=== PATIENT | female | born 1945 | race Caucasian/White ===

== ENCOUNTER → 2016-10-07 | Outpatient (CLI) | payer MEDICARE, OTHER | END | disposition home or self-care (01) | LOC: GMAJ 16:55 | PROVIDERS: ATTEND Family Medicine | DX: R30.0 Dysuria (principal) ==

== ENCOUNTER 2016-11-28 20:33 | Emergency (ER) | payer MEDICARE, OTHER ==
[2016-11-28 21:02] VITALS: TEMP 97.1
--- NOTE | 2016-11-28 21:09 | ED.PDOC ---
History of Present Illness - General Chief Complaint: Abdominal Pain Stated Complaint: left flank pain to back Time Seen by Provider: 11/28/16 20:41 Information Source: patient, RN notes reviewed, Vital Signs reviewed Exam Limitations: no limitations - History of Present Illness Initial Comments: Patient comes in with 2 weeks of progressively worsening lower abdominal pain that is radiating to her low back. The pain is dull and constant. + nausea but reports not changed from her base line. Feels bloated. Has been having problems with constipation. Was treated for a UTI 2-3 weeks ago with Keflex. Denies current urinary symptom. No fever or chills. Easily full. Blood sugar was low, 101, prior to coming to ER. Abdominal Pain Onset Location: LLQ, suprapubic Pain Radiation: back Quality: moderate, dull, steady Timing/Duration: getting worse - over past 2 weeks Improving Factors: nothing Worsening Factors: movement Associated Symptoms: back pain, nausea/vomiting Review of Systems - Review of Systems Constitutional: States: no symptoms reported. Denies: chills, fever, malaise Respiratory: States: no symptoms reported Cardiology: States: no symptoms reported Gastrointestinal/Abdominal: States: see HPI, abdominal pain, constipation, nausea. Denies: diarrhea, vomiting Genitourinary: States: no symptoms reported Musculoskeletal: States: back pain Skin: States: no symptoms reported Neurological: States: no symptoms reported Endocrine: States: increased thirst. Denies: increased urine Hematologic/Lymphatic: States: no symptoms reported Past Medical History (General) - Patient Medical History Hx Seizures: No Hx Stroke: No Hx Dementia: No Hx Asthma: No Hx of COPD: No Hx Cardiac Disorders: Yes - CAD Hx Congestive Heart Failure: No Hx Pacemaker: No Hx Hypertension: Yes Hx Thyroid Disease: No Hx Diabetes: Yes Hx Gastroesophageal Reflux: Yes Hx Renal Disease: No Hx Cancer: No Hx of HIV: No Hx Hepatitis C: No Hx MRSA: No Surgical History: cholecystectomy, other - Vaccination History Hx Tetanus, Diphtheria Vaccination: Yes Hx Influenza Vaccination: Yes Hx Pneumococcal Vaccination: Yes Immunizations Up to Date: Yes - Social History Hx Tobacco Use: No Hx Chewing Tobacco Use: No Hx Alcohol Use: No Hx Substance Use: No Hx Depression: No Hx Physical Abuse: No Hx Emotional Abuse: No Hx Suspected Abuse: No - Female History Patient is a Female of Child Bearing Age (10 -59 yrs old): No Patient : No Family Medical History - Family History Mother Family History: Unknown Physical Exam - Physical Exam General Appearance: Alert, No apparent distress, Obese, Well Developed, Well Groomed, Well Nourished, Other - Uncomfortable Neck: non-tender, full range of motion, supple, normal inspection Respiratory: lungs clear, normal breath sounds, no respiratory distress, no accessory muscle use Cardiovascular/Chest: normal peripheral pulses, regular rate, rhythm, no gallop , no JVD, no murmur Gastrointestinal/Abdominal: normal bowel sounds, soft, no organomegaly, no pulsatile mass, tenderness - LLQ without guarding or rebbound Extremity: normal range of motion, normal inspection Neurologic: alert, normal mood/affect, oriented x 3 Skin Exam: normal color, warm/dry Comments: Vital Signs - 24 hr 11/28/16 20:51 Temperature 97.1 F L Pulse Rate [ 75 left] Respiratory 18 Rate Blood Pressure 124/69 [left] O2 Sat by Pulse 92 L Oximetry Progress - Progress Progress: 11/28/16 23:58 Work-up suggests UTI. Will start Cipro and get urine culture. Patient is in agreement with plan. - Results/Orders Results/Orders: Laboratory Tests 11/28/16 11/28/16 11/28/16 21:11 21:20 21:20 WBC 7.5 RBC 3.61 L Hgb 12.4 Hct 37.9 MCV 105.1 H MCH 34.3 H MCHC 32.6 L RDW 15.4 H Plt Count 180 MPV 9.8 Absolute Neuts (auto) 4.20 Absolute Lymphs (auto) 1.50 Absolute Monos (auto) 1.20 H Absolute Eos (auto) 0.60 H Absolute Basos (auto) 0.00 Neutrophils % 56.3 Lymphocytes % 19.8 L Monocytes % 15.3 H Eosinophils % 7.9 H Basophils % 0.7 Sodium 141 Potassium 4.4 Chloride 100 L Carbon Dioxide 31 Anion Gap 14.4 BUN 32 H Creatinine 2.02 H BUN/Creatinine Ratio 15.8 POC Glucose Random Glucose 116 H Serum Osmolality 289.1 Calcium 9.9 Total Bilirubin 0.6 AST 30 ALT 19 Alkaline Phosphatase 82 Serum Total Protein 7.3 Albumin 4.1 Globulin 3.2 Albumin/Globulin Ratio 1.3 Urine Color Yellow Urine Appearance Clear Urine pH 6.0 Ur Specific [place] 1.010 Urine Protein Negative Urine Glucose (UA) Negative Urine Ketones Negative Urine Blood Trace-intact H Urine Nitrite Negative Urine Bilirubin Negative Urine Urobilinogen 0.2 Ur Leukocyte Esterase Moderate H Urine RBC 1-3 Urine WBC 3-5 H Ur Epithelial Cells 3-5 Urine Bacteria Rare 11/28/16 21:20 WBC RBC Hgb Hct MCV MCH MCHC RDW Plt Count MPV Absolute Neuts (auto) Absolute Lymphs (auto) Absolute Monos (auto) Absolute Eos (auto) Absolute Basos (auto) Neutrophils % Lymphocytes % Monocytes % Eosinophils % Basophils % Sodium Potassium Chloride Carbon Dioxide Anion Gap BUN Creatinine BUN/Creatinine Ratio POC Glucose 116 H Random Glucose Serum Osmolality Calcium Total Bilirubin AST ALT Alkaline Phosphatase Serum Total Protein Albumin Globulin Albumin/Globulin Ratio Urine Color Urine Appearance Urine pH Ur Specific [place] Urine Protein Urine Glucose (UA) Urine Ketones Urine Blood Urine Nitrite Urine Bilirubin Urine Urobilinogen Ur Leukocyte Esterase Urine RBC Urine WBC Ur Epithelial Cells Urine Bacteria - EKG/XRAY/CT CT Ordered: Yes - Diverticulosis, o/w unremarkable per Radiology Departure - Departure Clinical Impression: Acute UTI Time of Disposition: 23:59 Disposition: Discharge to Home or Self Care Condition: Good Departure Forms: ED Discharge - Pt. Copy, Patient Portal Self Enrollment Instructions: DI for Urinary Tract Infection (UTI) Diet: resume usual diet Activity: increase activity as tolerated Referrals: Collin Catalan MD [Primary Care Provider] - 1-2 Weeks Prescriptions: Ciprofloxacin [Cipro] 500 mg PO BID #10 tab Home Medications: Ambulatory Orders Amlodipine Besylate 5 mg PO AM 10/18/12 Aspirin [Aspir-81] 81 mg PO AM 10/18/12 HYDROcodone 7.5MG/APAP 325MG [[place] 7.5/325] 1 ea PO Q6H PRN 10/18/12 Pantoprazole Sodium 40 mg PO AM 10/18/12 cloNAZepam [Klonopin] 1 mg PO BID 10/18/12 Valacyclovir HCl [Valtrex] 500 mg PO BID PRN 12/10/14 Allopurinol [Zyloprim] 300 mg PO DAILY 01/17/16 Ascorbic Acid [Vitamin C] 500 mg PO DAILY 01/17/16 Atorvastatin Calcium [Lipitor] 40 mg PO DAILY 01/17/16 BuPROPion SR [Wellbutrin SR] 150 mg PO DAILY 01/17/16 Chlorpheniramine Maleate [Chlor-Trimeton] 4 mg PO Q6HR PRN 01/17/16 Cholecalciferol [D3 2000] 2,000 unit PO DAILY 01/17/16 Furosemide Tab [Lasix Tab] 40 mg PO DAILY 01/17/16 Guaifenesin-Codeine [Guaifenesin AC 100-10 mg/5Ml] 10 ml PO Q4H PRN 01/17/16 HYDROcodone 7.5MG/APAP 325MG [[place] 7.5/325] 1 tab PO BEDTIME 01/17/16 Ibuprofen [Advil] 200 mg PO PRN 01/17/16 Insulin Regular (Human) [Humulin R] 40 unit SUBCU TIDFD 01/17/16 Isosorbide Mononitrate [Isosorbide Mononitrate ER] 30 mg PO DAILY 01/17/16 Meclizine HCl 25 mg PO TID PRN 01/17/16 Metoprolol Succinate [Metoprolol Succinate ER] 50 mg PO DAILY 01/17/16 [place]-3 Fatty Acids [Fish Oil] 1,200 mg PO DAILY 01/17/16 Ondansetron [Ondansetron Odt] 4 mg PO Q6H PRN 01/17/16 Phenazopyridine HCl [Azo Urinary Pain Relief M] 2 ea PO TID PRN 01/17/16 diphenhydrAMINE HCL [Benadryl] 25 mg PO BEDTIME 01/17/16 Insulin,Isop(Human(NPH) [HumuLIN N] 30 unit SUBCU BIDAC #1 pen 01/18/16 Ciprofloxacin [Cipro] 500 mg PO BID #10 tab 11/29/16
--- NOTE | 2016-11-28 22:01 | RAD ---
EXAM DESCRIPTION: Abdomen Series CLINICAL HISTORY: 71 years Female ,Lower abd pain and constipation COMPARISON: 01/17/2016 TECHNIQUE: Frontal view chest x-ray and two views of the abdomen. FINDINGS: The cardiomediastinal silhouette appears stable. Heart appears enlarged.. No consolidating infiltrates or pleural effusions. No free air is identified beneath the hemidiaphragms. No dilated loops of bowel to suggest obstruction. Postsurgical changes in the gallbladder fossa. IMPRESSION: No acute plain film abnormality is identified. Stable mild cardiomegaly Electronically signed by: Gina Worthington 11/28/2016 10:01 PM CDT
[2016-11-28] MEDS ORDERED: SODIUM CHLORIDE 0.9% 1000ML 1,000 ML IVS ONE (22:07)
[2016-11-28 23:21] VITALS: O2SAT 97
--- NOTE | 2016-11-28 23:51 | CT ---
EXAM DESCRIPTION: Abdoment/Pelvis w/o Contrast CLINICAL HISTORY: 71 years Female LLQ pain, hematuria COMPARISON: 04/07/2012 TECHNIQUE: Contiguous axial images obtained through the abdomen and pelvis without IV contrast. Reformatted images obtained. This exam was performed according to our department optimization program which includes automated exposure control, adjustment of the mA and/or kv according to patient size and/or use of iterative reconstruction technique. FINDINGS: The lung bases are clear. The liver appears unremarkable. The spleen and pancreas appear unremarkable. No adrenal masses. The kidneys appear unremarkable. No hydronephrosis or definite ureteral calculi. The gallbladder is absent. No evidence of aortic aneurysm. There is diffuse vascular calcification. Fat-containing ventral hernia. No bowel obstruction. Diverticulosis without evidence of diverticulitis. Unremarkable appendix. No free pelvic fluid. IMPRESSION: Diverticulosis without evidence of diverticulitis No evidence of hydronephrosis or obstructive uropathy Vascular calcification Electronically signed by: Gina Worthington 11/28/2016 11:51 PM CDT
[2016-11-28] MEDS ORDERED: CIPROFLOXACIN 500 MG TAB PO ONE (23:57)
[2016-11-29 00:11] VITALS: BP 122/63
== END 2016-11-29 00:12 | disposition home or self-care (01) ==
LOC: ER 20:33
DX: N39.0 Urinary tract infection, site not specified (principal); I25.10 Atherosclerotic heart disease of native coronary artery without angina pectoris; I10 Essential (primary) hypertension; E11.9 Type 2 diabetes mellitus without complications; K21.9 Gastro-esophageal reflux disease without esophagitis
CPT/HCPCS: 36415; 74020; 74176; 80053; 81001; 82948; 85025; 87086; J7030

== ENCOUNTER → 2017-01-12 | Outpatient (CLI) | payer MEDICARE, OTHER | LOC: GMA 17:36 | PROVIDERS: ATTEND Nurse Practitioner Acute Care | DX: N30.00 Acute cystitis without hematuria (principal) ==

== ENCOUNTER → 2017-03-13 | Outpatient (CLI) | payer MEDICARE, OTHER | END | disposition home or self-care (01) | LOC: GMA 12:36 | PROVIDERS: ATTEND Nurse Practitioner Family | DX: N30.00 Acute cystitis without hematuria (principal) ==

== ENCOUNTER 2017-04-25 23:00 | Emergency (ER) | payer MEDICARE, OTHER ==
--- NOTE | 2017-04-25 23:39 | RAD ---
Procedure: XR FOOT 3 OR MORE VIEWS Exam Date: 04/25/2017 Ordering Provider: Gerardo Babcock Clinical Indication: right foot pain Comparison: None FINDINGS: No fracture or dislocation. Articular surfaces of the foot are preserved. No lytic or sclerotic lesions. Os peroneum. Lateral soft tissue swelling at the level of the fifth MTP joint. No radiopaque foreign body. No subcutaneous gas evident. Diffuse demineralization of the bones. IMPRESSION: 1. No acute fracture or dislocation of the right foot. Electronically signed by: Mitch Hawkins MD 04/25/2017 11:38 PM CDT
[2017-04-26 00:15] VITALS: TEMP 98.7
--- NOTE | 2017-04-26 00:32 | ED.PDOC ---
History of Present Illness - General Chief Complaint: Lower Extremity Injury Stated Complaint: rt foot soreness Time Seen by Provider: 04/26/17 00:07 Source: patient Exam Limitations: no limitations - History of Present Illness Initial Comments: The patient is a 72-year-old female presented secondary to persistent pain to the plantar and lateral aspect of the fifth metatarsal phalangeal joint of the right foot. The patient has apparently had a long-standing callus there and had a doctor work on it several weeks ago. He apparently made her bleed and since that time she has been having some pain at the site. She has a very large callus with underlying blood blister with what is no doubt a significant ulcer underneath that. There is no extending erythema. She reports that the blister had drained several days ago and sealed back up area she is not having any fevers. The callus is very thick and does need debridement. Timing/Duration: unsure Severity: mild Improving Factors: nothing Worsening Factors: nothing Associated Symptoms: denies symptoms Allergies/Adverse Reactions: Allergies Penicillins Allergy (Verified 01/17/16 06:48) Home Medications: Ambulatory Orders Amlodipine Besylate 5 mg PO AM 10/18/12 Aspirin [Aspir-81] 81 mg PO AM 10/18/12 HYDROcodone 7.5MG/APAP 325MG [[place] 7.5/325] 1 ea PO Q6H PRN 10/18/12 Pantoprazole Sodium 40 mg PO AM 10/18/12 cloNAZepam [Klonopin] 1 mg PO BID 10/18/12 Valacyclovir HCl [Valtrex] 500 mg PO BID PRN 12/10/14 Allopurinol [Zyloprim] 300 mg PO DAILY 01/17/16 Ascorbic Acid [Vitamin C] 500 mg PO DAILY 01/17/16 Atorvastatin Calcium [Lipitor] 40 mg PO DAILY 01/17/16 BuPROPion SR [Wellbutrin SR] 150 mg PO DAILY 01/17/16 Chlorpheniramine Maleate [Chlor-Trimeton] 4 mg PO Q6HR PRN 01/17/16 Cholecalciferol [D3 2000] 2,000 unit PO DAILY 01/17/16 Furosemide Tab [Lasix Tab] 40 mg PO DAILY 01/17/16 Guaifenesin-Codeine [Guaifenesin AC 100-10 mg/5Ml] 10 ml PO Q4H PRN 01/17/16 HYDROcodone 7.5MG/APAP 325MG [[place] 7.5/325] 1 tab PO BEDTIME 01/17/16 Ibuprofen [Advil] 200 mg PO PRN 01/17/16 Insulin Regular (Human) [Humulin R] 40 unit SUBCU TIDFD 01/17/16 Isosorbide Mononitrate [Isosorbide Mononitrate ER] 30 mg PO DAILY 01/17/16 Meclizine HCl 25 mg PO TID PRN 01/17/16 Metoprolol Succinate [Metoprolol Succinate ER] 50 mg PO DAILY 01/17/16 [place]-3 Fatty Acids [Fish Oil] 1,200 mg PO DAILY 01/17/16 Ondansetron [Ondansetron Odt] 4 mg PO Q6H PRN 01/17/16 Phenazopyridine HCl [Azo Urinary Pain Relief M] 2 ea PO TID PRN 01/17/16 diphenhydrAMINE HCL [Benadryl] 25 mg PO BEDTIME 01/17/16 Insulin,Isop(Human(NPH) [HumuLIN N] 30 unit SUBCU BIDAC #1 pen 01/18/16 Ciprofloxacin [Cipro] 500 mg PO BID #10 tab 11/29/16 Review of Systems - Review of Systems Review of Systems: 04/26/17 00:31 or new symptoms only: Constitutional: States: no symptoms reported EENTM: States: no symptoms reported Respiratory: States: no symptoms reported Cardiology: States: no symptoms reported Gastrointestinal/Abdominal: States: no symptoms reported Genitourinary: States: no symptoms reported Musculoskeletal: States: see HPI Skin: States: see HPI Neurological: States: no symptoms reported Endocrine: States: no symptoms reported All other Systems: No Change from Baseline Past Medical History (General) - Patient Medical History Hx Seizures: No Hx Stroke: No Hx Dementia: No Hx Asthma: No Hx of COPD: No Hx Cardiac Disorders: Yes - CAD Hx Congestive Heart Failure: No Hx Pacemaker: No Hx Hypertension: Yes Hx Thyroid Disease: No Hx Diabetes: Yes Hx Gastroesophageal Reflux: Yes Hx Renal Disease: No Hx Cancer: No Hx of HIV: No Hx Hepatitis C: No Hx MRSA: No Surgical History: cholecystectomy, other - Vaccination History Hx Tetanus, Diphtheria Vaccination: Yes Hx Influenza Vaccination: Yes Hx Pneumococcal Vaccination: Yes - Social History Hx Tobacco Use: No Hx Chewing Tobacco Use: No Hx Alcohol Use: No Hx Substance Use: No Hx Depression: No Hx Physical Abuse: No Hx Emotional Abuse: No Hx Suspected Abuse: No - Female History Patient : No Family Medical History - Family History Mother Family History: Unknown Physical Exam - Physical Exam General Appearance: Alert, Comfortable, No apparent distress Eye Exam: bilateral normal Ears, Nose, Throat: hearing grossly normal Neck: non-tender, supple Respiratory: no respiratory distress, no accessory muscle use Cardiovascular/Chest: no edema, other - regular rate Peripheral Pulses: radial,right: 2+, radial,left: 2+, dorsalis pedis,right: 2+, dorsalis pedis,left: 2+ Rectal Exam: deferred Extremity: normal range of motion, no pedal edema, normal capillary refill Neurologic: patternmaker all around II-XII nml as tested, alert, normal mood/affect, oriented x 3 Skin Exam: normal color - with the exception of a 1.25 x 1" callus with underlying blood blister to the right fifth metatarsal phalangeal joint Comments: Vital Signs - 24 hr 04/26/17 00:04 Temperature 98.7 F Pulse Rate [ 80 left] Respiratory 18 Rate Blood Pressure 139/45 [left] O2 Sat by Pulse 95 Oximetry Progress - Progress Progress: 04/26/17 00:33 the patient is a 72-year-old female presenting to the emergency room secondary to persistent discomfort due to a long-standing callus with underlying ulcer that is currently being covered by a blood blister that is at the base of the right fifth metatarsophalangeal joint. x-ray is reassuring. There is the possibility of infection within the blood blister. The patient has refused to allow me to trim down the callus to prevent growth of the underlying ulcer. Nor have I been allowed to obtain culture from the fluid within the blood blister. There is no significant evidence of any extending cellulitis. The patient has agreed to follow up with her primary care doctor on Thursday to try and get a referral to a specialist as soon as possible. Until then she is to try and keep weight off of the area in question. ER warnings were given for any significant worsening. - Results/Orders Results/Orders: x-ray of the right foot shows no evidence of fracture or dislocation. No evidence of significant bony erosion at the site of questionto indicate any osteomyelitis at this time. Departure - Departure Clinical Impression: Foot ulcer Qualifiers: Laterality: right Non-pressure ulcer stage: limited to breakdown of skin Qualified Code(s): L97.511 - Non-pressure chronic ulcer of other part of right foot limited to breakdown of skin Disposition: Discharge to Home or Self Care Condition: Fair Departure Forms: ED Discharge - Pt. Copy, Patient Portal Self Enrollment Instructions: DI for Diabetic Foot Ulcer Diet: diabetic diet, regular diet Activity: no pushing/pulling with affected limb Referrals: Collin Catalan MD [Primary Care Provider] - 1-2 Days Home Medications: Ambulatory Orders Amlodipine Besylate 5 mg PO AM 10/18/12 Aspirin [Aspir-81] 81 mg PO AM 10/18/12 HYDROcodone 7.5MG/APAP 325MG [[place] 7.5/325] 1 ea PO Q6H PRN 10/18/12 Pantoprazole Sodium 40 mg PO AM 10/18/12 cloNAZepam [Klonopin] 1 mg PO BID 10/18/12 Valacyclovir HCl [Valtrex] 500 mg PO BID PRN 12/10/14 Allopurinol [Zyloprim] 300 mg PO DAILY 01/17/16 Ascorbic Acid [Vitamin C] 500 mg PO DAILY 01/17/16 Atorvastatin Calcium [Lipitor] 40 mg PO DAILY 01/17/16 BuPROPion SR [Wellbutrin SR] 150 mg PO DAILY 01/17/16 Chlorpheniramine Maleate [Chlor-Trimeton] 4 mg PO Q6HR PRN 01/17/16 Cholecalciferol [D3 2000] 2,000 unit PO DAILY 01/17/16 Furosemide Tab [Lasix Tab] 40 mg PO DAILY 01/17/16 Guaifenesin-Codeine [Guaifenesin AC 100-10 mg/5Ml] 10 ml PO Q4H PRN 01/17/16 HYDROcodone 7.5MG/APAP 325MG [[place] 7.5/325] 1 tab PO BEDTIME 01/17/16 Ibuprofen [Advil] 200 mg PO PRN 01/17/16 Insulin Regular (Human) [Humulin R] 40 unit SUBCU TIDFD 01/17/16 Isosorbide Mononitrate [Isosorbide Mononitrate ER] 30 mg PO DAILY 01/17/16 Meclizine HCl 25 mg PO TID PRN 01/17/16 Metoprolol Succinate [Metoprolol Succinate ER] 50 mg PO DAILY 01/17/16 [place]-3 Fatty Acids [Fish Oil] 1,200 mg PO DAILY 01/17/16 Ondansetron [Ondansetron Odt] 4 mg PO Q6H PRN 01/17/16 Phenazopyridine HCl [Azo Urinary Pain Relief M] 2 ea PO TID PRN 01/17/16 diphenhydrAMINE HCL [Benadryl] 25 mg PO BEDTIME 01/17/16 Insulin,Isop(Human(NPH) [HumuLIN N] 30 unit SUBCU BIDAC #1 pen 01/18/16 Ciprofloxacin [Cipro] 500 mg PO BID #10 tab 11/29/16 Additional Instructions: the patient is a 72-year-old female presenting to the emergency room secondary to persistent discomfort due to a long-standing callus with underlying ulcer that is currently being covered by a blood blister that is at the base of the right fifth metatarsophalangeal joint. x-ray is reassuring. There is the possibility of infection within the blood blister. The patient has refused to allow me to trim down the callus to prevent growth of the underlying ulcer. Nor have I been allowed to obtain culture from the fluid within the blood blister. There is no significant evidence of any extending cellulitis. The patient has agreed to follow up with her primary care doctor on Thursday to try and get a referral to a specialist as soon as possible. Until then she is to try and keep weight off of the area in question. ER warnings were given for any significant worsening.
[2017-04-26 03:03] VITALS: BP 141/68; O2SAT 97
== END 2017-04-26 00:45 | disposition home or self-care (01) ==
LOC: ER 23:00
DX: L97.511 Non-pressure chronic ulcer of other part of right foot limited to breakdown of skin (principal); I10 Essential (primary) hypertension; I25.10 Atherosclerotic heart disease of native coronary artery without angina pectoris; Z79.899 Other long term (current) drug therapy; Z79.4 Long term (current) use of insulin; Z79.82 Long term (current) use of aspirin; Z88.0 Allergy status to penicillin

== ENCOUNTER → 2017-07-13 | Outpatient (CLI) | payer MEDICARE, OTHER | END | disposition home or self-care (01) | LOC: GMAJ 14:33 | PROVIDERS: ATTEND Family Medicine | DX: E78.00 Pure hypercholesterolemia, unspecified (principal); I10 Essential (primary) hypertension; E11.8 Type 2 diabetes mellitus with unspecified complications ==

== ENCOUNTER 2017-11-29 15:59 | Emergency (ER) | payer MEDICARE, OTHER ==
[2017-11-29 16:17] VITALS: TEMP 97.1
[2017-11-29] MEDS ORDERED: ALUM & MAG HYDROX-SIMETHICONE 30 ML, LIDOCAINE VISCOUS 2% 15 ML PO ONE ×2 (16:32)
[2017-11-29] MEDS ORDERED: ONDANSETRON INJ 4 MG/2 ML VIAL IV ONE (16:32)
[2017-11-29] MEDS ORDERED: PANTOPRAZOLE SODIUM IV 40 MG VIAL IV ONE (16:32)
[2017-11-29] MEDS ORDERED: SODIUM CHLORIDE 0.9% 500ML 500 ML IVS ONE (16:33)
--- NOTE | 2017-11-29 16:36 | ED.PDOC ---
History of Present Illness - General Chief Complaint: GI Problem Stated Complaint: indigestion,heartburn Time Seen by Provider: 11/29/17 16:25 Information Source: patient - History of Present Illness Abdominal Pain Onset Location: epigastric Pain Radiation: chest Quality: burning Timing/Duration: 4-6 hours - has been on po clindamycin x 2 days after skin carcinoma resection on L chest, 2 days ago Improving Factors: nothing Worsening Factors: eating Associated Symptoms: chest pain, heartburn Review of Systems - Review of Systems Constitutional: Denies: diaphoresis, fever, weakness EENTM: States: no symptoms reported Respiratory: Denies: cough, short of breath Cardiology: States: chest pain. Denies: edema Gastrointestinal/Abdominal: States: abdominal pain, nausea. Denies: diarrhea, vomiting Genitourinary: States: no symptoms reported Musculoskeletal: States: no symptoms reported Skin: States: no symptoms reported Neurological: Denies: numbness, paresthesia, weakness Endocrine: States: no symptoms reported Hematologic/Lymphatic: States: no symptoms reported Past Medical History (General) - Patient Medical History Hx Seizures: No Hx Stroke: No Hx Dementia: No Hx Asthma: No Hx of COPD: No Hx Cardiac Disorders: Yes - CAD Hx Congestive Heart Failure: No Hx Pacemaker: No Hx Hypertension: Yes Hx Thyroid Disease: No Hx Diabetes: Yes Hx Gastroesophageal Reflux: Yes Hx Renal Disease: No Hx Cancer: Yes - Skin Hx of HIV: No Hx Hepatitis C: No Hx MRSA: No Surgical History: cholecystectomy - Vaccination History Hx Tetanus, Diphtheria Vaccination: Yes Hx Influenza Vaccination: Yes Hx Pneumococcal Vaccination: Yes - Social History Hx Tobacco Use: Yes Hx Chewing Tobacco Use: No Hx Alcohol Use: No Hx Substance Use: No Hx Depression: No Hx Physical Abuse: No Hx Emotional Abuse: No Hx Suspected Abuse: No - Female History Patient : No Family Medical History - Family History Mother Family History: Unknown Physical Exam - Physical Exam General Appearance: Alert, Anxious, Obvious distress Eyes, Ears, Nose, Throat Exam: PERRL/EOMI, pharynx normal, other - dry mucosa Neck: non-tender, full range of motion Respiratory: lungs clear, normal breath sounds, other - bandaged, sutured wound L chest Cardiovascular/Chest: regular rate, rhythm, no edema Peripheral Pulses: No deficit Gastrointestinal/Abdominal: normal bowel sounds, soft, tenderness - in epigastrium Extremity: normal range of motion, non-tender, normal inspection, no pedal edema Neurologic: alert, normal mood/affect, oriented x 3 Skin Exam: normal color, warm/dry Lymphatic: no adenopathy Progress - EKG/XRAY/CT EKG: Sinus, nonspecific ST T wave Chg Comments: rate 81, IA 124, QRS 62 Departure - Departure Clinical Impression: Gastritis Qualifiers: Gastritis type: unspecified gastritis Chronicity: acute Gastritis bleeding: without bleeding Qualified Code(s): K29.00 - Acute gastritis without bleeding GERD (gastroesophageal reflux disease) Qualifiers: Esophagitis presence: with esophagitis Qualified Code(s): K21.0 - Gastro- esophageal reflux disease with esophagitis Disposition: Discharge to Home or Self Care Departure Forms: ED Discharge - Pt. Copy, Patient Portal Self Enrollment Referrals: Collin Catalan MD [Primary Care Provider] - 1-2 Weeks Prescriptions: Ondansetron HCl [Zofran] 4 - 8 mg PO Q6HR PRN #20 tab PRN Reason: Nausea Home Medications: Ambulatory Orders Amlodipine Besylate 5 mg PO AM 10/18/12 Aspirin [Aspir-81] 81 mg PO AM 10/18/12 Pantoprazole Sodium 40 mg PO AM 10/18/12 cloNAZepam [Klonopin] 0.5 mg PO BID 10/18/12 Valacyclovir HCl [Valtrex] 500 mg PO BID PRN 12/10/14 Allopurinol [Zyloprim] 300 mg PO DAILY 01/17/16 Ascorbic Acid [Vitamin C] 1,000 mg PO DAILY 01/17/16 Atorvastatin Calcium [Lipitor] 40 mg PO DAILY 01/17/16 BuPROPion SR [Wellbutrin SR] 150 mg PO DAILY 01/17/16 Cholecalciferol [D3 2000] 2,000 unit PO DAILY 01/17/16 Furosemide Tab [Lasix Tab] 40 mg PO DAILY 01/17/16 HYDROcodone 7.5MG/APAP 325MG [[place] 7.5/325] 0.5 tab PO BID 01/17/16 Insulin Regular (Human) [Humulin R] 40 unit SUBCU TIDFD 01/17/16 Isosorbide Mononitrate [Isosorbide Mononitrate ER] 30 mg PO DAILY 01/17/16 Meclizine HCl 25 mg PO TID PRN 07/21/16 Metoprolol Succinate [Metoprolol Succinate ER] 50 mg PO DAILY 01/17/16 [place]-3 Fatty Acids [Fish Oil] 1,200 mg PO DAILY 01/17/16 Ondansetron [Ondansetron Odt] 4 mg PO Q6H PRN 01/17/16 Insulin,Isop(Human(NPH) [HumuLIN N] 30 unit SUBCU BIDAC #1 pen 01/18/16 Magnesium 500 mg PO DAILY 11/29/17 Ondansetron HCl [Zofran] 4 - 8 mg PO Q6HR PRN #20 tab 11/29/17 Vitamin E [Natural Vitamin E] 2,000 unit PO DAILY 11/29/17 Zinc 50 mg PO DAILY 11/29/17
[2017-11-29] MEDS ORDERED: ALUM & MAG HYDROX-SIMETHICONE 30 ML UD ONE (16:44)
[2017-11-29] MEDS ORDERED: LIDOCAINE HCL 2% (MOUTH-THROAT) 15 ML UD ONE (16:44)
[2017-11-29] MEDS ORDERED: PROMETHAZINE HCL INJ 12.5 MG in SODIUM CHLORIDE 0.9% 50ML 50 ML IVPB ONE (17:15)
[2017-11-29] MEDS ORDERED: PROMETHAZINE HCL INJ 25 MG/ML VIAL ONE (17:20)
[2017-11-29] MEDS ORDERED: SODIUM CHLORIDE 0.9% 50ML 50 ML ONE (17:20)
[2017-11-29 18:24] VITALS: BP 124/59; O2SAT 97
== END 2017-11-29 18:19 | disposition home or self-care (01) ==
LOC: ER 15:59
DX: K29.00 Acute gastritis without bleeding (principal); K21.0 Gastro-esophageal reflux disease with esophagitis; I25.10 Atherosclerotic heart disease of native coronary artery without angina pectoris; I10 Essential (primary) hypertension; E11.9 Type 2 diabetes mellitus without complications; Z85.828 Personal history of other malignant neoplasm of skin; Z87.891 Personal history of nicotine dependence
CPT/HCPCS: 36415; 80053; 84484; 85025; 93005; A4216; J2405; J2550; J7040

== ENCOUNTER → 2017-12-03 | Outpatient (CLI) | payer MEDICARE, OTHER | LOC: GMAJ 16:28 | PROVIDERS: ATTEND Family Medicine | DX: N30.00 Acute cystitis without hematuria (principal); R30.0 Dysuria ==

== ENCOUNTER 2019-01-16 03:23 | Emergency (ER) | payer MEDICARE, OTHER ==
[2019-01-16 03:44] VITALS: TEMP 97.1
[2019-01-16] MEDS ORDERED: KETOROLAC TROMETHAMINE INJ 30 MG/ML VIAL IM ONE (03:47)
--- NOTE | 2019-01-16 03:51 | ED.PDOC ---
History of Present Illness - General Chief Complaint: General Stated Complaint: neuropathy pain in hands Time Seen by Provider: 01/16/19 03:25 Source: patient Exam Limitations: no limitations - History of Present Illness Initial Comments: The patient's a 73-year-old female presenting to the emergency room secondary to neuropathic pain in her hands and her feet. This is a long- standing problem. She does have tramadol to take an gabapentin to take however she did not take any of that tonight. She reports that Tylenol does better than the tramadol. She did take some Tylenol. She has discontinued the gabapentin because she felt like it was causing some swelling in her legs. She reports that she did not tolerate Lyrica well in the past. She does not know if she's tried Cymbalta. Timing/Duration: 4-6 hours Severity: moderate Improving Factors: nothing Worsening Factors: nothing Associated Symptoms: denies symptoms Allergies/Adverse Reactions: Allergies Penicillins Allergy (Verified 01/16/19 03:44) Home Medications: Ambulatory Orders Amlodipine Besylate 5 mg PO AM 10/18/12 Aspirin [Aspirin 81] 81 mg PO AM 10/18/12 Pantoprazole Sodium 40 mg PO AM 10/18/12 Allopurinol [Zyloprim] 300 mg PO DAILY 01/17/16 Atorvastatin Calcium [Lipitor] 40 mg PO DAILY 01/17/16 BuPROPion SR [Wellbutrin SR] 150 mg PO DAILY 01/17/16 Furosemide Tab [Lasix Tab] 40 mg PO DAILY 01/17/16 Insulin Regular (Human) [Humulin R] 40 unit SUBCU TIDFD 01/17/16 Isosorbide Mononitrate [Isosorbide Mononitrate ER] 30 mg PO DAILY 01/17/16 Metoprolol Succinate [Metoprolol Succinate ER] 50 mg PO DAILY 01/17/16 Insulin,Isop(Human(NPH) [HumuLIN N] 30 unit SUBCU BIDAC #1 pen 01/18/16 Gabapentin [Neurontin] 100 mg PO BID #30 cap 11/24/18 Tramadol HCl 50 mg PO Q6HRS PRN #30 tab 11/24/18 Ciprofloxacin [Cipro] 500 mg PO BID #10 tab 01/16/19 Review of Systems - Review of Systems Constitutional: States: no symptoms reported EENTM: States: no symptoms reported Respiratory: States: no symptoms reported Cardiology: States: no symptoms reported Gastrointestinal/Abdominal: States: no symptoms reported Genitourinary: States: no symptoms reported Musculoskeletal: States: no symptoms reported Skin: States: no symptoms reported Neurological: States: see HPI Endocrine: States: no symptoms reported All other Systems: No Change from Baseline Past Medical History (General) - Patient Medical History Hx Seizures: No Hx Stroke: No Hx Dementia: No Hx Asthma: No Hx of COPD: No Hx Cardiac Disorders: Yes - CAD Hx Congestive Heart Failure: No Hx Pacemaker: No Hx Hypertension: Yes Hx Thyroid Disease: No Hx Diabetes: Yes Hx Gastroesophageal Reflux: Yes Hx Renal Disease: No Hx Cancer: Yes - Skin Hx of HIV: No Hx Hepatitis C: No Hx MRSA: No Surgical History: cholecystectomy - Vaccination History Hx Tetanus, Diphtheria Vaccination: Yes Hx Influenza Vaccination: Yes Hx Pneumococcal Vaccination: Yes - Social History Hx Tobacco Use: Yes Hx Chewing Tobacco Use: No Hx Alcohol Use: No Hx Substance Use: No Hx Depression: No Hx Physical Abuse: No Hx Emotional Abuse: No Hx Suspected Abuse: No - Female History Patient : No Family Medical History - Family History Mother Family History: Unknown Hx Family Hypertension: Yes - multiple family members Hx Family Diabetes: Yes - multiple family members Physical Exam - Physical Exam General Appearance: Alert, Anxious, No apparent distress Eye Exam: bilateral normal Ears, Nose, Throat: hearing grossly normal - chronically decreased bilaterally, normal pharynx Neck: non-tender, supple Respiratory: no respiratory distress, no accessory muscle use Cardiovascular/Chest: normal peripheral pulses, no edema, other - regular rate Peripheral Pulses: radial,right: 2+, radial,left: 2+ Gastrointestinal/Abdominal: non tender, soft Rectal Exam: deferred Back Exam: no CVA tenderness, no vertebral tenderness Extremity: normal range of motion, non-tender, normal inspection, no calf tenderness, normal capillary refill, pedal edema - +1 edema to the left foot. No edema to the right foot. Neurologic: rn lpn cna II-XII nml as tested, alert, oriented x 3, other - flat affect Skin Exam: normal color Comments: Vital Signs - 24 hr 01/16/19 03:30 Temperature 97.1 F L Pulse Rate [ 74 monitor] Respiratory 18 Rate Blood Pressure 119/53 [Left Arm] O2 Sat by Pulse 92 L Oximetry Progress - Progress Progress: 01/16/19 03:51 the patient's a 73-year-old female with peripheral neuropathy. She has been having some difficulty with swelling of her feet since taking the gabapentin 300 mg 3 times daily. As the discomfort is most noticeable at night we will have her start taking it only in the evening. She can continue to take a dose of tramadol if needed. Occasional doses of Aleve may also help. She is to follow back up with her primary care doctor early next week for reevaluation. She did receive a dose of Toradol here and is to take a dose of gabapentin tonight. She should also shrimp picker some compression stockings from [employer] to help reduce the development of swelling related to the medication. Continue other home medications as previously prescribed. the patient is going to be placed on ciprofloxacin for a urinary tract infection as well. The urine is being cultured. She will need a repeat urinalysis with her primary care doctor later this week. ER warnings were given. 01/16/19 04:26 - Results/Orders Results/Orders: Laboratory Tests 01/16/19 03:55 Urine Color Yellow Urine Appearance Sl cloudy Urine pH 6.0 Ur Specific [place] 1.010 Urine Protein Negative Urine Glucose (UA) Negative Urine Ketones Negative Urine Blood Trace-intact H Urine Nitrite Positive H Urine Bilirubin Negative Urine Urobilinogen 0.2 Ur Leukocyte Esterase Moderate H Urine RBC 3-5 H Urine WBC Tntc H Ur Epithelial Cells 5-10 Urine Bacteria 3+ H Departure - Departure Clinical Impression: Cystitis, Neuropathic pain Disposition: Discharge to Home or Self Care Condition: Fair Departure Forms: ED Discharge - Pt. Copy, Patient Portal Self Enrollment Instructions: Peripheral Neuropathy (DC), Urinary Tract Infection, Adult (DC) Diet: regular diet Activity: increase activity as tolerated Referrals: Collin Catalan MD [Primary Care Provider] - 1-2 Weeks Prescriptions: Ciprofloxacin [Cipro] 500 mg PO BID #10 tab Home Medications: Ambulatory Orders Amlodipine Besylate 5 mg PO AM 10/18/12 Aspirin [Aspirin 81] 81 mg PO AM 10/18/12 Pantoprazole Sodium 40 mg PO AM 10/18/12 Allopurinol [Zyloprim] 300 mg PO DAILY 01/17/16 Atorvastatin Calcium [Lipitor] 40 mg PO DAILY 01/17/16 BuPROPion SR [Wellbutrin SR] 150 mg PO DAILY 01/17/16 Furosemide Tab [Lasix Tab] 40 mg PO DAILY 01/17/16 Insulin Regular (Human) [Humulin R] 40 unit SUBCU TIDFD 01/17/16 Isosorbide Mononitrate [Isosorbide Mononitrate ER] 30 mg PO DAILY 01/17/16 Metoprolol Succinate [Metoprolol Succinate ER] 50 mg PO DAILY 01/17/16 Insulin,Isop(Human(NPH) [HumuLIN N] 30 unit SUBCU BIDAC #1 pen 01/18/16 Gabapentin [Neurontin] 100 mg PO BID #30 cap 11/24/18 Tramadol HCl 50 mg PO Q6HRS PRN #30 tab 11/24/18 Ciprofloxacin [Cipro] 500 mg PO BID #10 tab 01/16/19 Additional Instructions: the patient's a 73-year-old female with peripheral neuropathy. She has been having some difficulty with swelling of her feet since taking the gabapentin 300 mg 3 times daily. As the discomfort is most noticeable at night we will have her start taking it only in the evening. She can continue to take a dose of tramadol if needed. Occasional doses of Aleve may also help. She is to follow back up with her primary care doctor early next week for reevaluation. She did receive a dose of Toradol here and is to take a dose of gabapentin tonight. She should also shrimp picker some compression stockings from [facility] to help reduce the development of swelling related to the medication. Continue o ther home medications as previously prescribed. the patient is going to be placed on ciprofloxacin for a urinary tract infection as well. The urine is being cultured. She will need a repeat urinalysis with her primary care doctor later this week. ER warnings were given.
[2019-01-16] MEDS ORDERED: CIPROFLOXACIN 500 MG TAB PO ONE (04:24)
[2019-01-16 04:38] VITALS: BP 138/73; O2SAT 93
== END 2019-01-16 04:38 | disposition home or self-care (01) ==
LOC: ER 03:23
DX: N30.90 Cystitis, unspecified without hematuria (principal); G62.9 Polyneuropathy, unspecified; I25.10 Atherosclerotic heart disease of native coronary artery without angina pectoris; I10 Essential (primary) hypertension; E11.9 Type 2 diabetes mellitus without complications; K21.9 Gastro-esophageal reflux disease without esophagitis; Z90.49 Acquired absence of other specified parts of digestive tract; Z85.828 Personal history of other malignant neoplasm of skin; Z87.891 Personal history of nicotine dependence; Z79.4 Long term (current) use of insulin; Z79.899 Other long term (current) drug therapy; Z88.0 Allergy status to penicillin
CPT/HCPCS: 81001; 87086; J1885

== ENCOUNTER 2019-07-22 13:48 | Emergency (ER) | payer MEDICARE, OTHER ==
[2019-07-22] MEDS ORDERED: SODIUM CHLORIDE 0.9% 1000ML 1,500 ML IVS ONE (14:00)
[2019-07-22] MEDS ORDERED: ACETAMINOPHEN 500 MG TAB PO ONE (14:00)
[2019-07-22] MEDS ORDERED: SODIUM CHLORIDE 0.9% (FLUSH) 10 ML SYG IV PRN (14:00)
[2019-07-22] MEDS ORDERED: MEROPENEM 1 GM in SODIUM CHL 0.9% 50ML MIN-BAG+ 50 ML IVPB ONE (14:02)
--- NOTE | 2019-07-22 14:04 | ED.PDOC ---
History of Present Illness - General Chief Complaint: Respiratory Problem Time Seen by Provider: 07/22/19 13:59 Source: patient Exam Limitations: no limitations - History of Present Illness Initial Comments: 74 yo F who presents for hypoxia via EMS. Pt states she has been feeling ill for the past 5 days with congestion, productive cough, sore throat, fever, chills, progressive SOB. Today home health came to check on her and pt was noted to be hypoxic to 70%, EMS was called, duoneb given en route. No hx of COPD or CHF, though pt is on water pill for "swelling in my legs." Denies hx of CA. Hx of CKD. Denies DAILY, neck pain/stiffness, CP, abd pain, n/v/d. 85% on arrival to ED. 90% on 4L in ED. Allergies/Adverse Reactions: Allergies Penicillins Allergy (Verified 01/16/19 03:44) Home Medications: Ambulatory Orders Amlodipine Besylate 5 mg PO AM 10/18/12 Aspirin [Aspirin 81] 81 mg PO AM 10/18/12 Pantoprazole Sodium 40 mg PO AM 10/18/12 Allopurinol [Zyloprim] 300 mg PO DAILY 01/17/16 Atorvastatin Calcium [Lipitor] 40 mg PO DAILY 01/17/16 BuPROPion SR [Wellbutrin SR] 150 mg PO DAILY 01/17/16 Furosemide Tab [Lasix Tab] 40 mg PO DAILY 01/17/16 Insulin Regular (Human) [Humulin R] 40 unit SUBCU TIDFD 01/17/16 Isosorbide Mononitrate [Isosorbide Mononitrate ER] 30 mg PO DAILY 01/17/16 Metoprolol Succinate [Metoprolol Succinate ER] 50 mg PO DAILY 01/17/16 Insulin,Isop(Human(NPH) [HumuLIN N] 30 unit SUBCU BIDAC #1 pen 01/18/16 Ascorbic Acid [Vitamin C] 1,000 mg PO DAILY 07/22/19 Calcium Carbonate-Cholecalcife [Os-Endy 500 + D] 1 tab PO DAILY 07/22/19 Cyanocobalamin [Vitamin B-12] 1,000 mcg PO MONTHLY 07/22/19 Gabapentin [Neurontin] 300 mg PO BID PRN 07/22/19 Hydrochlorothiazide 12.5 mg PO DAILY 07/22/19 [place]-3 Fatty Acids [[place] 3] 1 cap PO DAILY 07/22/19 Vit W/ Ferrous Fumara [] 1 tab PO DAILY 07/22/19 Probiotic Product [Digestive Advantage Probi] 2 chw PO DAILY 07/22/19 Tramadol HCl 50 mg PO Q6HRS PRN 07/22/19 hydrOXYzine HCl [Atarax] 25 mg PO DAILY PRN 07/22/19 Review of Systems - Review of Systems Constitutional: States: chills, fever EENTM: States: nose congestion, throat pain. Denies: ear discharge Respiratory: States: cough, short of breath Cardiology: Denies: chest pain, palpitations, syncope Gastrointestinal/Abdominal: Denies: abdominal pain, constipation, diarrhea, nausea, vomiting Genitourinary: Denies: dysuria, frequency, hematuria Musculoskeletal: Denies: back pain, neck pain Skin: Denies: lesions, rash Neurological: Denies: headache, numbness, weakness Past Medical History (General) - Patient Medical History Hx Seizures: No Hx Stroke: No Hx Dementia: No Hx Asthma: No Hx of COPD: No Hx Cardiac Disorders: Yes - CAD Hx Congestive Heart Failure: No Hx Pacemaker: No Hx Hypertension: Yes Hx Thyroid Disease: No Hx Diabetes: Yes Hx Gastroesophageal Reflux: Yes Hx Renal Disease: No Hx Cancer: Yes - Skin Hx of HIV: No Hx Hepatitis C: No Hx MRSA: No - Vaccination History Hx Tetanus, Diphtheria Vaccination: Yes Hx Influenza Vaccination: Yes Hx Pneumococcal Vaccination: Yes - Social History Hx Tobacco Use: Yes Hx Chewing Tobacco Use: No Hx Alcohol Use: No Hx Substance Use: No Hx Depression: No Hx Physical Abuse: No Hx Emotional Abuse: No Hx Suspected Abuse: No - Female History Patient : No Family Medical History - Family History Mother Family History: Unknown Hx Family Hypertension: Yes - multiple family members Hx Family Diabetes: Yes - multiple family members Physical Exam - Physical Exam General Appearance: Alert, Well Developed, Well Nourished, Other - Mild respiratory distress Eyes, Ears, Nose, Throat Exam: other - Bilateral middle ear effusions, no erythema or bulging noted to TM's, dry mucous membranes, no tonsillar exudate, mild tonsillar erythema Neck: non-tender, full range of motion, supple Respiratory: chest non-tender, other - Mild tachypnea, 90% on L, coarse breath sounds throughout, mild resp distress, no accessory muscle use Cardiovascular/Chest: normal peripheral pulses, regular rate, rhythm, no gallop, no JVD, no murmur Peripheral Pulses: radial,right: 2+, radial,left: 2+ Gastrointestinal/Abdominal: non tender, soft, no organomegaly, no pulsatile mass, other - No distention, guarding, rebound Extremity: normal range of motion, non-tender, normal inspection, no calf tenderness, normal capillary refill, pedal edema - 1+pitting edema, symmetric BLE Neurologic: no motor/sensory deficits, alert, normal mood/affect, oriented x 3 Skin Exam: normal color, warm/dry Progress - Progress Progress: 07/22/19 14:13 Pt meets to SIRS criteria with suspected pneumonia, will activate sepsis. Bolus to be given at 126cc/hr 2/2 hx of CHF and edema on exam. ABG pending, 90% on 4L, will start on bipap. 07/22/19 16:43 Discussed with pt and family need for admission, they agree with plan. Discussed all incidental findings and need for follow up. Pt is doing well on bipap. Held fluids after BNP resulted, however pt appears intravascularly dry and with infection will need fluids, will start back up again at 126cc/hr, will reevaluate after 500cc. Subsequently discussed with Yoav Sexton, admitting midlevel, who accepts for admission. 07/22/19 17:03 Yoav Sexton called back after evaluation of pt's chart and imaging. He believes pt would be better served on an intermediate floor and facility with ICU capabilities. Could require need for dialysis with CKD as need for fluid for hydration status and has potential for worsening pulmonary function. Discussed with family, agree with plan of care, request [facility] as that is where all of pt's physicians are located. Pt is asking for gabapentin for her neuropathy as she is due for her dose. 07/22/19 17:24 [facility] does not have any bed availability, family okay with [facility]. Discussed with Dr. Shields, ED physician at [facility], accepts for transfer. Cathi Wright MD Emergency Medicine Physician Billing Number [id number] - Results/Orders Results/Orders: 07/22/19 14:00 Sodium Chloride 0.9% (Flush) [Saline Flush Syringe] 10 ml IV PRN PRN Arterial Blood Gas Stat EKG Stat Pulse Ox Stat URINALYSIS Stat 07/22/19 14:42 BLOOD CULTURE Stat 07/22/19 15:05 STREP A SCREEN CULTURE Stat 07/22/19 15:06 BiPAP/CPAP Treatment DAILY 07/22/19 15:35 ABG [Arterial Blood Gas] Stat 07/22/19 16:07 LACTIC ACID Q2H 07/22/19 16:32 ED Intent to Admit Routine Laboratory Results - last 24 hr 07/22/19 07/22/19 07/22/19 14:00 14:15 14:15 WBC RBC Hgb Hct MCV MCH MCHC RDW Plt Count MPV Absolute Neuts (auto) Absolute Lymphs (auto) Absolute Monos (auto) Absolute Eos (auto) Absolute Basos (auto) Neutrophils % Lymphocytes % Monocytes % Eosinophils % Basophils % pCO2 29 L pO2 68 L ABG pH 7.488 H ABG O2 Saturation 93.4 L ABG Deoxyhemoglobin 6.5 H Oxyhemoglobin % 91.4 L Carboxyhemoglobin % 0.6 Methemoglobin % Sat 1.5 Calc Total Hemoglobin 10.8 L Sodium Potassium Chloride Carbon Dioxide Anion Gap BUN Creatinine BUN/Creatinine Ratio Random Glucose Serum Osmolality Lactic Acid Calcium Total Bilirubin AST ALT Alkaline Phosphatase Troponin I 0.03 B-Natriuretic Peptide 265.0 H* Serum Total Protein Albumin Globulin Albumin/Globulin Ratio Group A Strep Rapid 07/22/19 07/22/19 07/22/19 14:25 14:25 14:25 WBC 13.9 H RBC 2.79 L Hgb 10.0 L Hct 29.9 L MCV 106.9 H MCH 35.7 H MCHC 33.4 RDW 15.8 H Plt Count 202 MPV 12.2 H Absolute Neuts (auto) 11.30 H Absolute Lymphs (auto) 1.00 Absolute Monos (auto) 1.30 H Absolute Eos (auto) 0.20 Absolute Basos (auto) 0.10 Neutrophils % 81.5 H Lymphocytes % 7.5 L Monocytes % 9.3 H Eosinophils % 1.3 Basophils % 0.4 pCO2 pO2 ABG pH ABG O2 Saturation ABG Deoxyhemoglobin Oxyhemoglobin % Carboxyhemoglobin % Methemoglobin % Sat Calc Total Hemoglobin Sodium 133 L Potassium 4.6 Chloride 98 L Carbon Dioxide 22 Anion Gap 17.6 BUN 42 H Creatinine 2.37 H BUN/Creatinine Ratio 17.7 Random Glucose 267 H Serum Osmolality 286.2 Lactic Acid 2.2 Calcium 8.8 Total Bilirubin 0.9 AST 24 ALT 11 Alkaline Phosphatase 117 Troponin I B-Natriuretic Peptide Serum Total Protein 7.7 Albumin 3.3 Globulin 4.4 H Albumin/Globulin Ratio 0.8 L Group A Strep Rapid 07/22/19 07/22/19 15:05 15:35 WBC RBC Hgb Hct MCV MCH MCHC RDW Plt Count MPV Absolute Neuts (auto) Absolute Lymphs (auto) Absolute Monos (auto) Absolute Eos (auto) Absolute Basos (auto) Neutrophils % Lymphocytes % Monocytes % Eosinophils % Basophils % pCO2 32 pO2 59 L ABG pH 7.462 H ABG O2 Saturation 85.2 L ABG Deoxyhemoglobin 14.5 H Oxyhemoglobin % 83.3 L Carboxyhemoglobin % 0.7 Methemoglobin % Sat 1.5 Calc Total Hemoglobin 11.5 L Sodium Potassium Chloride Carbon Dioxide Anion Gap BUN Creatinine BUN/Creatinine Ratio Random Glucose Serum Osmolality Lactic Acid Calcium Total Bilirubin AST ALT Alkaline Phosphatase Troponin I B-Natriuretic Peptide Serum Total Protein Albumin Globulin Albumin/Globulin Ratio Group A Strep Rapid Negative CXR: Study: Single Frontal Radiograph of the Chest. Indication:cough, fever Comparison: January 17, 2016 Impression: Cardiomegaly with mild interstitial prominence, likely interstitial edema. Chronic scarring as well as atypical infection can give this appearance. Follow-up to resolution recommended Mild ba silar atelectasis. No pleural effusion or pneumothorax. Osteopenia. If this is a new finding, DEXA scan recommended as well as evaluation for possible osteoporosis treatment. Electronically signed by: Gaurav Adair MD 07/22/2019 2:55 PM [address] CT chest: EXAM DESCRIPTION: Chest w/o Contrast : Computed Tomography. CLINICAL HISTORY: 74 years Female fever, cough COMPARISON: Chest radiograph on this visit. Chest radiograph December 2015. TECHNIQUE: Spiral-axial scans at 5.0 mm intervals through the lungs and thorax without IV contrast. 2.5 x 5.0 mm lung algorithm axial reconstructions. Coronal and sagittal 2.0 Mm reconstructions. Total Exam DLP: 262.6 mGy-cm. This exam was performed according to our departmental dose- optimization program which includes automated exposure control, adjustment of the mA and/or kV according to patient size and/or use of iterative reconstruction technique; to reduce radiation dose to as low as reasonably achievable (ALARA). Nodule measurements under 10 mm are given as mean value of 3 axes diameters. FINDINGS: Lungs and large airways: Bilateral consolidations with air bronchograms in the lower lobes larger on the right and prominent in th e posterior basal segment of the right and the lateral basal segment on the left. No calcifications associated with the infiltrates. 4 mm nodule versus pleural thickening in the lateral right apex. Pleural thickening in the left apex. Patchy densities without nodule formation in the bilateral upper lobes. Pleural parenchymal scarring in the right middle lobe and lingula. 5.5 mm groundglass nodule subpleural left lower lobe on axial series 4, image 58 Pleural spaces: Bibasilar pleural thickening but no effusion. No pneumothorax. Mediastinum and [place]: Multiple normal sized lymph nodes in the mediastinum. No dominant soft tissue masses. Limited evaluation due to lack of IV contrast. Great vessels and Heart: Evaluation limited due to lack of IV contrast. Coronary artery atherosclerotic calcifications, which are also seen in the brachiocephalic vessels aortic arch and descending thoracic aorta. Soft tissues of neck base, axillae, and chest wall: Evaluation limited due to lack of IV cont rast. Nodule seen in the bilateral included breast but the breasts are not completely visualized on the study. Upper abdomen: No free air free fluid. All of the organs are not completely visualized. Limited by lack of IV contrast. Osseous structures: Decreased bone density. Minimal thoracic scoliosis. Mild arthrosis in some of the joints. IMPRESSION: 1. Bilateral bacteriologic infiltrates in the lower lobes predominantly the lower segments more on the right than the left. Bilateral bacterial infiltrates are less common than unilateral, except in cases of aspiration, or atypical bacterial infection. Should also consider fungal pneumonia, viral pneumonia, and immunodeficiency pneumonias. 2. 4.0 mm solid pulmonary nodule versus focal pleural thickening within the right upper lobe. If patient is low risk for malignancy, no routine follow-up imaging is recommended; if patient is high risk for malignancy, a non- contrast Chest CT at 12 months is optional. If performed and the nodule is sta ble at 12 months, no further follow-up is recommended. The groundglass nodule in the left lung is subclinical in size. These guidelines do not apply to immunocompromised patients and patients with cancer. Follow up in patients with significant comorbidities as clinically warranted. For lung cancer screening, adhere to Lung-RADS guidelines. Reference: Radiology. 2017; 284(1):228-43. 3. Nodular densities in the included breast soft tissues bilaterally. No film record of patient participation in breast mammographic screening program at this facility. Consider bilateral diagnostic digital mammographic follow-up. Electronically signed by: Ethan Liu MD 07/22/2019 4:21 PM SENIOR TABLEAU DEVELOPER Vital Signs - 24 hr 07/22/19 07/22/19 07/22/19 13:48 13:58 14:45 Temperature 101.2 F H Pulse Rate [ 95 H 95 H Pulse ox] Respiratory 24 24 14 Rate Blood Pressure 141/58 [L brachial] O2 Sat by Pulse 85 L Oximetry 07/22/19 07/22/19 07/22/19 14:48 15:00 16:00 Temperature Pulse Rate [ 101 H 59 L 100 H Pulse ox] Respiratory 21 22 Rate Blood Pressure 131/65 131/65 130/63 [L brachial] O2 Sat by Pulse 95 96 96 Oximetry 07/22/19 07/22/19 07/22/19 17:47 18:45 18:59 Temperature 100 F H Pulse Rate [ Pulse ox] Respiratory 16 16 Rate Blood Pressure 104/62 111/76 [L brachial] O2 Sat by Pulse 98 94 L Oximetry 07/22/19 07/22/19 19:00 19:31 Temperature 100 F H Pulse Rate [ 99 H 118 H Pulse ox] Respiratory 20 28 H Rate Blood Pressure 118/61 116/73 [L brachial] O2 Sat by Pulse 94 L 97 Oximetry - EKG/XRAY/CT EKG: Sinus, no ST T wave changes Comments: Rate 96, Sinus arrhythmia, Low voltage Departure - Departure Clinical Impression: Multifocal pneumonia, Acute respiratory distress, Acute hypoxemic respiratory failure CKD (chronic kidney disease) Qualifiers: Chronic kidney disease stage: unspecified stage Qualified Code(s): N18.9 - Chronic kidney disease, unspecified Time of Disposition: 16:33 Disposition: Transfer to Hospital Condition: Fair Referrals: Collin Catalan MD [Primary Care Provider] - 1-2 Weeks Home Medications: Ambulatory Orders Amlodipine Besylate 5 mg PO AM 10/18/12 Aspirin [Aspirin 81] 81 mg PO AM 10/18/12 Pantoprazole Sodium 40 mg PO AM 10/18/12 Allopurinol [Zyloprim] 300 mg PO DAILY 01/17/16 Atorvastatin Calcium [Lipitor] 40 mg PO DAILY 01/17/16 BuPROPion SR [Wellbutrin SR] 150 mg PO DAILY 01/17/16 Furosemide Tab [Lasix Tab] 40 mg PO DAILY 01/17/16 Insulin Regular (Human) [Humulin R] 40 unit SUBCU TIDFD 01/17/16 Isosorbide Mononitrate [Isosorbide Mononitrate ER] 30 mg PO DAILY 01/17/16 Metoprolol Succinate [Metoprolol Succinate ER] 50 mg PO DAILY 01/17/16 Insulin,Isop(Human(NPH) [HumuLIN N] 30 unit SUBCU BIDAC #1 pen 01/18/16 Ascorbic Acid [Vitamin C] 1,000 mg PO DAILY 07/22/19 Calcium Carbonate-Cholecalcife [Os-Endy 500 + D] 1 tab PO DAILY 07/22/19 Cyanocobalamin [Vitamin B-12] 1,000 mcg PO MONTHLY 07/22/19 Gabapentin [Neurontin] 300 mg PO BID PRN 07/22/19 Hydrochlorothiazide 12.5 mg PO DAILY 07/22/19 [place]-3 Fatty Acids [[place] 3] 1 cap PO DAILY 07/22/19 Vit W/ Ferrous Fumara [] 1 tab PO DAILY 07/22/19 Probiotic Product [Digestive Advantage Probi] 2 chw PO DAILY 07/22/19 Tramadol HCl 50 mg PO Q6HRS PRN 07/22/19 hydrOXYzine HCl [Atarax] 25 mg PO DAILY PRN 07/22/19
[2019-07-22] MEDS ORDERED: MEROPENEM 1 GM VIAL IVPB ONE (14:08)
[2019-07-22] MEDS ORDERED: SODIUM CHL 0.9% 50ML MIN-BAG+ 50 ML IVPB ONE (14:08)
--- NOTE | 2019-07-22 14:56 | RAD ---
Study: Single Frontal Radiograph of the Chest. Indication:cough, fever Comparison: January 17, 2016 Impression: Cardiomegaly with mild interstitial prominence, likely interstitial edema. Chronic scarring as well as atypical infection can give this appearance. Follow-up to resolution recommended Mild basilar atelectasis. No pleural effusion or pneumothorax. Osteopenia. If this is a new finding, DEXA scan recommended as well as evaluation for possible osteoporosis treatment. Electronically signed by: Gaurav Adair MD 07/22/2019 2:55 PM [facility]
--- NOTE | 2019-07-22 16:22 | CT ---
EXAM DESCRIPTION: Chest w/o Contrast : Computed Tomography. CLINICAL HISTORY: 74 years Female fever, cough COMPARISON: Chest radiograph on this visit. Chest radiograph December 2015. TECHNIQUE: Spiral-axial scans at 5.0 mm intervals through the lungs and thorax without IV contrast. 2.5 x 5.0 mm lung algorithm axial reconstructions. Coronal and sagittal 2.0 Mm reconstructions. Total Exam DLP: 262.6 mGy-cm. This exam was performed according to our departmental dose-optimization program which includes automated exposure control, adjustment of the mA and/or kV according to patient size and/or use of iterative reconstruction technique; to reduce radiation dose to as low as reasonably achievable (ALARA). Nodule measurements under 10 mm are given as mean value of 3 axes diameters. FINDINGS: Lungs and large airways: Bilateral consolidations with air bronchograms in the lower lobes larger on the right and prominent in the posterior basal segment of the right and the lateral basal segment on the left. No calcifications associated with the infiltrates. 4 mm nodule versus pleural thickening in the lateral right apex. Pleural thickening in the left apex. Patchy densities without nodule formation in the bilateral upper lobes. Pleural parenchymal scarring in the right middle lobe and lingula. 5.5 mm groundglass nodule subpleural left lower lobe on axial series 4, image 58 Pleural spaces: Bibasilar pleural thickening but no effusion. No pneumothorax. Mediastinum and Olive: Multiple normal sized lymph nodes in the mediastinum. No dominant soft tissue masses. Limited evaluation due to lack of IV contrast. Great vessels and Heart: Evaluation limited due to lack of IV contrast. Coronary artery atherosclerotic calcifications, which are also seen in the brachiocephalic vessels aortic arch and descending thoracic aorta. Soft tissues of neck base, axillae, and chest wall: Evaluation limited due to lack of IV contrast. Nodule seen in the bilateral included breast but the breasts are not completely visualized on the study. Upper abdomen: No free air free fluid. All of the organs are not completely visualized. Limited by lack of IV contrast. Osseous structures: Decreased bone density. Minimal thoracic scoliosis. Mild arthrosis in some of the joints. IMPRESSION: 1. Bilateral bacteriologic infiltrates in the lower lobes predominantly the lower segments more on the right than the left. Bilateral bacterial infiltrates are less common than unilateral, except in cases of aspiration, or atypical bacterial infection. Should also consider fungal pneumonia, viral pneumonia, and immunodeficiency pneumonias. 2. 4.0 mm solid pulmonary nodule versus focal pleural thickening within the right upper lobe. If patient is low risk for malignancy, no routine follow-up imaging is recommended; if patient is high risk for malignancy, a non-contrast Chest CT at 12 months is optional. If performed and the nodule is stable at 12 months, no further follow-up is recommended. The groundglass nodule in the left lung is subclinical in size. These guidelines do not apply to immunocompromised patients and patients with cancer. Follow up in patients with significant comorbidities as clinically warranted. For lung cancer screening, adhere to Lung-RADS guidelines. Reference: Radiology. 2017; 284(1):228-43. 3. Nodular densities in the included breast soft tissues bilaterally. No film record of patient participation in breast mammographic screening program at this facility. Consider bilateral diagnostic digital mammographic follow-up. Electronically signed by: Ethan Liu MD 07/22/2019 4:21 PM [facility]
[2019-07-22] MEDS ORDERED: GABAPENTIN 100 MG CAP PO ONE (16:45)
[2019-07-22 18:59] VITALS: TEMP 100
[2019-07-22 19:34] VITALS: BP 116/73; O2SAT 97
== END 2019-07-22 19:55 | disposition short-term general hospital (02) ==
LOC: ER 13:48 → MS 16:50 → UNDOADMOB 16:50 → ER 19:55
DX: R06.03 Acute respiratory distress (principal); J18.9 Pneumonia, unspecified organism; R09.02 Hypoxemia; N18.9 Chronic kidney disease, unspecified; I25.10 Atherosclerotic heart disease of native coronary artery without angina pectoris; I12.9 Hypertensive chronic kidney disease with stage 1 through stage 4 chronic kidney disease, or unspecified chronic kidney disease; E11.22 Type 2 diabetes mellitus with diabetic chronic kidney disease; K21.9 Gastro-esophageal reflux disease without esophagitis; Z87.891 Personal history of nicotine dependence; Z85.828 Personal history of other malignant neoplasm of skin; Z79.899 Other long term (current) drug therapy; Z79.4 Long term (current) use of insulin; Z79.82 Long term (current) use of aspirin; Z88.0 Allergy status to penicillin

== ENCOUNTER 2019-08-29 17:43 | Inpatient (IN) | payer MEDICARE, OTHER ==
[2019-08-29] MEDS ORDERED: ONDANSETRON INJ 4 MG/2 ML VIAL IV ONE (18:46)
[2019-08-29] MEDS ORDERED: SODIUM CHLORIDE 0.9% 1000ML 1,000 ML IVS ONE ×3 (18:46→23:41)
[2019-08-29] MEDS ORDERED: fentaNYL CITRATE INJ 50 MCG/ML 2 ML AMP ONE (19:05)
[2019-08-29] MEDS: SODIUM CHLORIDE 0.9% (FLUSH) 10 ML SYG IV PRN (19:08)
[2019-08-29] MEDS ORDERED: fentaNYL CITRATE INJ 50 MCG/ML 2 ML AMP IV ONE (19:20)
--- NOTE | 2019-08-29 20:02 | RAD ---
EXAM DESCRIPTION: Shoulder,Right 2 or More Views CLINICAL HISTORY: 74 years Female pain for several weeks COMPARISON: None. TECHNIQUE: RIGHT shoulder two view FINDINGS: No acute fractures or dislocations identified. No osseous destructive lesions. Acromioclavicular joint appears maintained. IMPRESSION: No acute fracture or dislocation identified. Electronically signed by: Gina Worthington MD 08/29/2019 8:01 PM [facility]
--- NOTE | 2019-08-29 20:03 | CT ---
EXAM DESCRIPTION: Abdoment/Pelvis w/o Contrast CLINICAL HISTORY: 74 years Female flank pain COMPARISON: CT chest from 07/22/[address] abdomen and pelvis from 11/28/2016. TECHNIQUE: Contiguous axial images obtained through the abdomen and pelvis without IV contrast. Reformatted images obtained. This exam was performed according to our department optimization program which includes automated exposure control, adjustment of the mA and/or kv according to patient size and/or use of iterative reconstruction technique. FINDINGS: Coronary artery calcifications. There is continued consolidation within the right lower lobe which appears overall improved compared to the prior study. There is also continued infiltrate in the left lower lobe which appears improved compared to the prior study. The liver appears unremarkable. The spleen and pancreas appear unremarkable. The left adrenal gland is slightly nodular similar compared to the prior CT abdomen and pelvis study. Mild bilateral perinephric stranding. The stranding appears slightly more pronounced around the left kidney compared to the prior study although evaluation is somewhat suboptimal secondary to motion artifact. Clinical correlation is recommended to exclude the possibility of pyelonephritis. No hydronephrosis or ureteral calculi. Changes from previous cholecystectomy. Atherosclerotic calcifications. No aneurysmal dilatation of the aorta. No bowel obstruction. The appendix appears unremarkable. Colonic diverticulosis without diverticulitis. No significant free pelvic fluid. The urinary bladder is distended. There is a fat-containing umbilical hernia similar compared to the prior study. IMPRESSION: Mild bilateral perinephric stranding. The stranding appears slightly more pronounced around the left kidney compared to the prior CT abdomen and pelvis study although evaluation is somewhat suboptimal secondary to motion artifact. Clinical correlation is recommended to exclude the possibility of pyelonephritis. No hydronephrosis or ureteral calculi. There is infiltrate in the lower lungs suggesting pneumonia. The appearance is improved compared to the recent prior chest CT study. The urinary bladder is distended. Other findings as above. Electronically signed by: Mata Worthington MD 08/29/2019 8:02 PM [facility]IC[facility]
[2019-08-29] MEDS ORDERED: cefTRIAXone SODIUM 1 GM in SODIUM CHL 0.9% 50ML MIN-BAG+ 50 ML IVPB ONE (21:03)
[2019-08-29] MEDS ORDERED: cefTRIAXone SODIUM 1 GM VIAL ONE (21:46)
[2019-08-29] MEDS ORDERED: SODIUM CHL 0.9% 50ML MIN-BAG+ 50 ML IVPB ONE (21:46)
--- NOTE | 2019-08-29 21:52 | HP ---
CHIEF COMPLAINT: "I feel sick." HISTORY OF PRESENT ILLNESS: Ms. Willson is a 74-year-old female who came to the Emergency Room because she felt sick and was a little confused for the past couple of days. The patient has been hospitalized twice in the [place] area this year already for recurrent urinary tract infections. She was recently discharged after a five day stay in [place] to a rehab hospital where she stayed an additional ten days. She has been home now for a little over two weeks and still has not got her strength back. In the Emergency Room today, she was found to have evidence of bilateral pyelonephritis and is going to be admitted to the hospital for empiric antibiotic therapy as we await culture results. At this time, the patient does not appear to be septic and so we feel we can handle her here although she does have numerous comorbidities and a history of septicemia. REVIEW OF SYSTEMS: CONSTITUTIONAL: Positive for fevers and chills. HEENT: No head congestion or sore throat. CARDIOVASCULAR: No chest pains or palpitations. PULMONARY: No shortness of breath or cough. GASTROINTESTINAL: She is nauseated, but has not vomited. She denies diarrhea, melena and hematochezia. GENITOURINARY: No dysuria or hematuria. She does admit to having some urinary frequency lately. NEUROLOGIC: No headache or dizziness. HEMATOLOGIC: No bleeding tendencies or easy bruising. PAST MEDICAL HISTORY: 1. Type 2 diabetes, on insulin with brittle control. 2. Coronary artery disease. 3. Hyperlipidemia. 4. Hypertension. 5. Chronic kidney disease, stage 3 (baseline creatinine is around 2.5, however she remembers that it was as high as 4 during her most recent hospitalization in [place]). 6. Chronic low back pain. PAST SURGICAL HISTORY: 1. Laparoscopic cholecystectomy in 2011 that resulted in choledocholithiasis and septicemia. 2. Heart cath with stent placement. 3. Low back surgery. CURRENT MEDICATIONS: The patient takes Humulin N and Humulin R, but I do not have the rest of her list completed thus far. ALLERGIES: PENICILLIN. SOCIAL HISTORY: She and her live here in [place]. She denies tobacco, alcohol and drug use. FAMILY HISTORY: Noncontributory. PHYSICAL EXAMINATION: VITAL SIGNS: Temperature 101. Pulse 120. Blood pressure 104/60. Pulse oximetry 98% on room air. GENERAL: Awake, alert. She is not in distress although she appears to be uncomfortable. HEENT: No scleral icterus. Oropharynx is dry. NECK: Supple. No adenopathy. CHEST: Clear to auscultation. CARDIOVASCULAR: Regular rate and rhythm without murmur. ABDOMEN: Soft, nondistended. She has diffuse tenderness to palpation without rebound or guarding. No CVA tenderness. The suprapubic region is probably more tender than anywhere else. EXTREMITIES: No cyanosis, clubbing, or edema. NEUROLOGIC: No focal motor or sensory deficits. LABORATORY: White count 14.1 with a left shift, hemoglobin 9.9, hematocrit 29.6, platelet count 192. Sodium 137, potassium 4.6, chloride 102, carbon dioxide 23, BUN 61, creatinine 2.74, lactic acid 1.8, total bilirubin 0.6, AST 21, ALT 14. Lipase 37. Urinalysis shows greater than 100 white blood cells, 10 to 20 red blood cells, nitrite positive, 3+ bacteria with only 5 to 10 epithelial cells. RADIOLOGY: CT of the abdomen and pelvis shows bilateral perinephric stranding consistent pyelonephritis but no evidence of kidney stones or any obstruction of the urinary collecting system. ASSESSMENT: 1. Sepsis. 2. Acute pyelonephritis, bilateral. 3. Tachycardia. 4. Type 2 diabetes with brittle control. 5. Coronary artery disease. 6. History of recurrent urinary tract infections requiring numerous hospitalizations over the past three months. PLAN: The patient is quite ill and will need to be admitted to the hospital for close evaluation and management. She will be put on some IV Rocephin as we await culture results. We will keep her NPO tonight and maybe start some clear liquids tomorrow if she is making clinical improvement. I will cover her with a sliding scale of Humalog in the meantime. We will obtain and confirm an accurate medications list prior to starting home medications. Hopefully we can get that done by the first thing in the morning. I would anticipate the patient will need to be in the hospital anywhere from 3 to 7 days. #[id number] MTDD
[2019-08-29] MEDS ORDERED: SODIUM CHLORIDE 0.9% 1000ML 1,000 ML ONE (22:30)
[2019-08-29] MEDS ORDERED: MORPHINE SULFATE INJ 10 MG/ML VIAL IV PRN (22:42)
[2019-08-29] MEDS ORDERED: DEXTROSE 10% 500ML IVPB PRN (22:42)
[2019-08-29] MEDS ORDERED: GLUCAGON INJ 1 MG VIAL SUBCU PRN (22:42)
[2019-08-29] MEDS ORDERED: SODIUM CHLORIDE 0.9% (FLUSH) 10 ML SYG IV PRN (22:42)
[2019-08-29] MEDS ORDERED: ONDANSETRON INJ 4 MG/2 ML VIAL IV PRN (22:48)
[2019-08-29] MEDS ORDERED: cefTRIAXone SODIUM 1 GM in SODIUM CHL 0.9% 50ML MIN-BAG+ 50 ML IVPB SCH (23:00)
--- NOTE | 2019-08-29 23:00 | ED.PDOC ---
History of Present Illness - General Chief Complaint: General Stated Complaint: bilat lower back pain Time Seen by Provider: 08/29/19 18:46 Source: patient, RN notes reviewed, Vital Signs reviewed, EMS notes reviewed, family - and daughter Exam Limitations: clinical condition - Patient is confused and has a wandering history of present illness and keeps changing her story. and are telling different stories regarding her history of present illness. - History of Present Illness Initial Comments: Patient is a 74-year-old white female who presents with altered mental status, confusion, complaints of right shoulder pain and back pain bilaterally. Additionally, per family, she is more confused and combative than she was earlier today. They also inform me that she has been admitted to the hospital multiple times in the last 2 months and has been in rehab at the half-way for the last 3 weeks and just got out. Per the patient she is complaining of bilateral flank pain. Shoulder pain and thinks she fell. Per the family the patient did not experience any fall.The history of present illness is confusing and wondering per patient and family. Timing/Duration: 4-6 hours, getting worse, changing over time Severity: severe Improving Factors: nothing Worsening Factors: nothing Associated Symptoms: malaise, weakness Allergies/Adverse Reactions: Allergies Penicillins Allergy (Verified 08/29/19 18:03) Home Medications: Ambulatory Orders Amlodipine Besylate 5 mg PO AM 10/18/12 Aspirin [Aspirin 81] 81 mg PO AM 10/18/12 Pantoprazole Sodium 40 mg PO AM 10/18/12 Allopurinol [Zyloprim] 300 mg PO DAILY 01/17/16 Atorvastatin Calcium [Lipitor] 40 mg PO DAILY 01/17/16 BuPROPion SR [Wellbutrin SR] 150 mg PO DAILY 01/17/16 Furosemide Tab [Lasix Tab] 40 mg PO DAILY 01/17/16 Insulin Regular (Human) [Humulin R] 40 unit SUBCU TIDFD 01/17/16 Isosorbide Mononitrate [Isosorbide Mononitrate ER] 30 mg PO DAILY 01/17/16 Metoprolol Succinate [Metoprolol Succinate ER] 50 mg PO DAILY 01/17/16 Insulin,Isop(Human(NPH) [HumuLIN N] 30 unit SUBCU BIDAC #1 pen 01/18/16 Ascorbic Acid [Vitamin C] 1,000 mg PO DAILY 07/22/19 Calcium Carbonate-Cholecalcife [Os-Endy 500 + D] 1 tab PO DAILY 07/22/19 Cyanocobalamin [Vitamin B-12] 1,000 mcg PO MONTHLY 07/22/19 Gabapentin [Neurontin] 300 mg PO BID PRN 07/22/19 Hydrochlorothiazide 12.5 mg PO DAILY 07/22/19 [place]-3 Fatty Acids [[place] 3] 1 cap PO DAILY 07/22/19 Vit W/ Ferrous Fumara [] 1 tab PO DAILY 07/22/19 Probiotic Product [Digestive Advantage Probi] 2 chw PO DAILY 07/22/19 Tramadol HCl 50 mg PO Q6HRS PRN 07/22/19 hydrOXYzine HCl [Atarax] 25 mg PO DAILY PRN 07/22/19 Review of Systems - Review of Systems Constitutional: States: see HPI, chills, malaise, weakness. Denies: fever EENTM: States: no symptoms reported Respiratory: States: see HPI, short of breath. Denies: cough Cardiology: States: no symptoms reported. Denies: chest pain, palpitations, syncope Gastrointestinal/Abdominal: States: abdominal pain - Suprapubic. Denies: nausea, vomiting Genitourinary: States: no symptoms reported. Denies: dysuria, frequency Musculoskeletal: States: see HPI, back pain, joint pain - Right shoulder. Denies: neck pain Skin: States: no symptoms reported Neurological: States: see HPI, anxiety, weakness Unable to Obtain Due To: condition - Patient confusion Past Medical History (General) - Patient Medical History Hx Seizures: No Hx Stroke: No Hx Dementia: No Hx Asthma: No Hx of COPD: No Hx Cardiac Disorders: Yes - CAD Hx Congestive Heart Failure: No Hx Pacemaker: No Hx Hypertension: Yes Hx Thyroid Disease: No Hx Diabetes: No Hx Gastroesophageal Reflux: Yes Hx Renal Disease: No Hx Cancer: Yes - Skin Hx of HIV: No Hx Hepatitis C: No Hx MRSA: No Surgical History: cholecystectomy - Vaccination History Hx Tetanus, Diphtheria Vaccination: Yes Hx Influenza Vaccination: Yes Hx Pneumococcal Vaccination: Yes - Social History Hx Tobacco Use: Yes Hx Chewing Tobacco Use: No Hx Alcohol Use: No Hx Substance Use: No Hx Depression: No Hx Physical Abuse: No Hx Emotional Abuse: No Hx Suspected Abuse: No - Female History Patient is a Female of Child Bearing Age (10 -59 yrs old): No Patient : No Family Medical History - Family History Mother Family History: Unknown Hx Family Hypertension: Yes - multiple family members Hx Family Diabetes: Yes - multiple family members Physical Exam - Physical Exam General Appearance: Agitated, Anxious, Obvious distress, Ill Appearing, Well Groomed, Well Hydrated, Well Nourished Eye Exam: bilateral normal Ears, Nose, Throat: hearing grossly normal, normal pharynx Neck: non-tender, full range of motion, supple Respiratory: chest non-tender, lungs clear, normal breath sounds, no respiratory distress Cardiovascular/Chest: normal peripheral pulses, no murmur, tachycardia Peripheral Pulses: radial,right: 2+, radial,left: 2+ Gastrointestinal/Abdominal: normal bowel sounds, soft, tenderness - Suprapubic Back Exam: no vertebral tenderness, CVA tenderness (R), CVA tenderness (L) Extremity: normal range of motion, non-tender, normal inspection Neurologic: 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 Skin Exam: warm/dry, pallor Lymphatic: no adenopathy Progress - Progress Progress: Differential diagnosis: Altered mental status, CVA, UTI, sepsis among others. 08/29/19 23:07 Patient with a long recent history of multiple hospitalizations with associated UTI and sepsis. Labs here indicate that she is got a UTI again which could explain her altered mental status. Lactic acid is not elevated so I do not believe she is septic at this time but I do have concerns for early sepsis. Patient did become hypotensive shortly after antibiotics were started but they returned to a systolic of 100 after 500 cc normal saline. This patient is being admitted to the hospital for further evaluation and care. I did discuss this patient with Dr. Alfred Catalan and he accepts the patient for admission. I have discussed admission with both the patient, her and daughter and they voiced understanding and agreement with the plan of care. Mata Saxena M.D. #[id number] - Results/Orders Results/Orders: 08/29/19 18:46 IV Care:Saline Lock per Protoc QSHIFT Sodium Chloride 0.9% (Flush) [Saline Flush Syringe] 10 ml IV PRN PRN 08/29/19 19:00 EKG STAT 08/29/19 19:30 BLOOD CULTURE Stat 08/29/19 19:55 Urine Culture Stat Laboratory Results - last 24 hr 08/29/19 08/29/19 08/29/19 18:55 18:55 18:55 WBC 14.1 H RBC 2.79 L Hgb 9.9 L Hct 29.6 L MCV 106.1 H MCH 35.3 H MCHC 33.3 RDW 15.6 H Plt Count 192 MPV 10.9 H Absolute Neuts (auto) 13.20 H Absolute Lymphs (auto) 0.30 L Absolute Monos (auto) 0.00 L Absolute Eos (auto) 0.20 Absolute Basos (auto) 0.40 H Neutrophils % 93.2 H Lymphocytes % 2.2 L Monocytes % 0.3 L Eosinophils % 1.5 Basophils % 2.8 H Normal RBC Morphology Stain quality accept Sodium 137 Potassium 4.6 Chloride 102 Carbon Dioxide 23 Anion Gap 16.6 BUN 61 H Creatinine 2.74 H BUN/Creatinine Ratio 22.3 H Random Glucose 158 H Serum Osmolality 294.4 Lactic Acid Calcium 8.9 Total Bilirubin 0.6 Direct Bilirubin 0.2 Indirect Bilirubin 0.4 AST 21 ALT 14 Alkaline Phosphatase 119 Serum Total Protein 7.7 Albumin 3.3 Lipase 37 Urine Color Urine Appearance Urine pH Ur Specific [place] Urine Protein Urine Glucose (UA) Urine Ketones Urine Blood Urine Nitrite Urine Bilirubin Urine Urobilinogen Ur Leukocyte Esterase Urine RBC Urine WBC Ur Epithelial Cells Urine Bacteria 08/29/19 08/29/19 19:10 19:55 WBC RBC Hgb Hct MCV MCH MCHC RDW Plt Count MPV Absolute Neuts (auto) Absolute Lymphs (auto) Absolute Monos (auto) Absolute Eos (auto) Absolute Basos (auto) Neutrophils % Lymphocytes % Monocytes % Eosinophils % Basophils % Normal RBC Morphology Sodium Potassium Chloride Carbon Dioxide Anion Gap BUN Creatinine BUN/Creatinine Ratio Random Glucose Serum Osmolality Lactic Acid 1.8 Calcium Total Bilirubin Direct Bilirubin Indirect Bilirubin AST ALT Alkaline Phosphatase Serum Total Protein Albumin Lipase Urine Color Yellow Urine Appearance Cloudy Urine pH 5.0 Ur Specific [place] 1.015 Urine Protein 30 Urine Glucose (UA) Negative Urine Ketones Negative Urine Blood Moderate H Urine Nitrite Positive H Urine Bilirubin Negative Urine Urobilinogen 0.2 Ur Leukocyte Esterase Large H Urine RBC 10-20 H Urine WBC >100 H Ur Epithelial Cells 5-10 Urine Bacteria 3+ H EXAM DESCRIPTION: Shoulder,Right 2 or More Views CLINICAL HISTORY: 74 years Female pain for several weeks COMPARISON: None. TECHNIQUE: RIGHT shoulder two view FINDINGS: No acute fractures or dislocations identified. No osseous destructive lesions. Acromioclavicular joint appears maintained. IMPRESSION: No acute fracture or dislocation identified. Electronically signed by: Gina Worthington MD 08/29/2019 8:01 PM EXAM DESCRIPTION: Abdoment/Pelvis w/o Contrast CLINICAL HISTORY: 74 years Female flank pain COMPARISON: CT chest from 07/22/[address] abdomen and pelvis from 11/28/2016. TECHNIQUE: Contiguous axial images obtained through the abdomen and pelvis without IV contrast. Reformatted images obtained. This exam was performed according to our department optimization program which includes automated exposure control, adjustment of the mA and/or kv according to patient size and/or use of iterative reconstruction technique. FINDINGS: Coronary artery calcifications. There is continued consolidation within the right lower lobe which appears overall improved compared to the prior study. There is also continued infiltrate in the left lower lobe which appears improved compared to the prior study. The liver appears unremarkable. The spleen and pancreas appear unremarkable. The left adrenal gland is slightly nodular similar compared to the prior CT abdomen and pelvis study. Mild bilateral perinephric stranding. The stranding appears slightly more pronounced around the left kidney compared to the prior study although evaluation is somewhat suboptimal secondary to motion artifact. Clinical correlation is recommended to exclude the possibility of pyelonephritis. No hydronephrosis or ureteral calculi. Changes from previous cholecystectomy. Atherosclerotic calcifications. No aneurysmal dilatation of the aorta. No bowel obstruction. The appendix appears unremarkable. Colonic diverticulosis without diverticulitis. No significant free pelvic fluid. The urinary bladder is distended. There is a fat-containing umbilical hernia similar compared to the prior study. IMPRESSION: Mild bilateral perinephric stranding. The stranding appears slightly more pronounced around the left kidney compared to the prior CT abdomen and pelvis study although evaluation is somewhat suboptimal secondary to motion artifact. Clinical correlation is recommended to exclude the possibility of pyelonephritis. No hydronephrosis or ureteral calculi. There is infiltrate in the lower lungs suggesting pneumonia. The appearance is improved compared to the recent prior chest CT study. The urinary bladder is distended. Other findings as above. 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 - EKG/XRAY/CT CT Ordered: No CT Interpretation Call Back: No Departure - Departure Clinical Impression: Pyelonephritis, Chronic renal insufficiency, stage II (mild) UTI (urinary tract infection) Qualifiers: Urinary tract infection type: acute cystitis Hematuria presence: without hematuria Qualified Code(s): N30.00 - Acute cystitis without hematuria Fever Qualifiers: Fever type: due to other condition Qualified Code(s): R50.81 - Fever presenting with conditions classified elsewhere Hypotension Qualifiers: Hypotension type: hypotension due to hypovolemia Qualified Code(s): I95.89 - Other hypotension; E86.1 - Hypovolemia Time of Disposition: 23:10 Disposition: Admit Patient Condition: Serious Home Medications: Ambulatory Orders Amlodipine Besylate 5 mg PO AM 10/18/12 Aspirin [Aspirin 81] 81 mg PO AM 10/18/12 Pantoprazole Sodium 40 mg PO AM 10/18/12 Allopurinol [Zyloprim] 300 mg PO DAILY 01/17/16 Atorvastatin Calcium [Lipitor] 40 mg PO DAILY 01/17/16 BuPROPion SR [Wellbutrin SR] 150 mg PO DAILY 01/17/16 Furosemide Tab [Lasix Tab] 40 mg PO DAILY 01/17/16 Insulin Regular (Human) [Humulin R] 40 unit SUBCU TIDFD 01/17/16 Isosorbide Mononitrate [Isosorbide Mononitrate ER] 30 mg PO DAILY 01/17/16 Metoprolol Succinate [Metoprolol Succinate ER] 50 mg PO DAILY 01/17/16 Insulin,Isop(Human(NPH) [HumuLIN N] 30 unit SUBCU BIDAC #1 pen 01/18/16 Ascorbic Acid [Vitamin C] 1,000 mg PO DAILY 07/22/19 Calcium Carbonate-Cholecalcife [Os-Endy 500 + D] 1 tab PO DAILY 07/22/19 Cyanocobalamin [Vitamin B-12] 1,000 mcg PO MONTHLY 07/22/19 Gabapentin [Neurontin] 300 mg PO BID PRN 07/22/19 Hydrochlorothiazide 12.5 mg PO DAILY 07/22/19 [place]-3 Fatty Acids [[place] 3] 1 cap PO DAILY 07/22/19 Vit W/ Ferrous Fumara [] 1 tab PO DAILY 07/22/19 Probiotic Product [Digestive Advantage Probi] 2 chw PO DAILY 07/22/19 Tramadol HCl 50 mg PO Q6HRS PRN 07/22/19 hydrOXYzine HCl [Atarax] 25 mg PO DAILY PRN 07/22/19 Critical Care Note - Critical Care Note Total Time (mins): 45 Decision To Admit - Decistion To Admit Decision to Admit Reason: Admit from ER Decision to Admit Date: 08/29/19 Decision to Admit Time: 21:30
[2019-08-29] MEDS: IV SET AND CAP CHANGE INJ INJ SCH (23:23)
[2019-08-29] MEDS: ACETAMINOPHEN 325 MG TAB PO PRN (23:48)
[2019-08-30] MEDS: INSULIN LISPRO 100 UNITS/ML PEN SUBCU SCH ×4 (00:36→17:58)
[2019-08-30] MEDS: KCL 20MEQ/0.45% NS 1,000 ML IVS PRN ×3 (00:40→23:59)
[2019-08-30] MEDS: MEROPENEM 1 GM in SODIUM CHL 0.9% 50ML MIN-BAG+ 50 ML IVPB SCH (12:50)
[2019-08-30] MEDS ORDERED: SODIUM CHL 0.9% 50ML MIN-BAG+ 50 ML IVPB ONE ×2 (13:58→19:06)
[2019-08-30] MEDS ORDERED: MEROPENEM 1 GM VIAL IVPB ONE ×2 (13:58→19:07)
--- NOTE | 2019-08-30 14:47 | PN ---
SUPERVISING PHYSICIAN: Umair Babcock MD DATE: 08/30/19 SUBJECTIVE: It is reported by nursing staff that the patient has had a low blood pressure. Her systolic blood pressure has been in the upper 80s to low 90s. She also ran a temperature. Her main complaints are of suprapubic abdominal pain. She does feel quite weak, but there is no shortness of breath, no nausea, no vomiting. OBJECTIVE: VITAL SIGNS: Temperature 104.2. Heart rate 103. Blood pressure has been as low as 80/53. It is now 91/53. Respiratory rate 21 to 22. O2 saturation 92% on 2 liters nasal cannula. RESPIRATORY: Essentially clear to auscultation bilaterally. Somewhat diminished at the bases. She is somewhat tachypneic at times. CARDIAC: Tachycardic rate and regular rhythm. GASTROINTESTINAL: Abdomen is soft, nondistended. She does have moderate suprapubic pain and bilateral flank pain. Bowel sounds are positive. NEUROLOGIC: She is awake. She is slightly lethargic. She is oriented x3. LABORATORY: WBCs 17,600, hemoglobin dropped to 7.9 and hematocrit 24.1. Repeat H&H is 8.5 and 26.2. She has a left shift on her differential. Blood sugars have run between 140 and 236. Sodium 136, potassium 4.7, chloride 106, carbon dioxide 20. BUN 61, creatinine 3.02, calcium 7.9. BNP 308. Group A Strep is negative. Influenza type A and B per PCR are both negative. All other labs and films have been reviewed via the EMR. ASSESSMENT: 1. Sepsis with temperature of 102.4, hypotension with blood pressure 80s/50s, tachycardic rate of 103 and WBC greater than 17,000. 2. Acute pyelonephritis, bilateral. 3. Type 2 diabetes with brittle control. 4. Coronary artery disease. 5. History of recurrent urinary tract infections requiring numerous hospitalizations over the past three months. PLAN: We will continue present supportive care. I have given her judicious fluids today and I have advanced her diet as she has had no complaints of nausea or vomiting. I spoke with Dr. Sutton, infectious diseases, and she recommended that we change the patient from Rocephin to Merrem given her multiple infections over the last few months. She will be closely monitored given the concerns for her becoming severely septic. I have ordered lab for in the morning. We will continue to monitor the patient closely and follow as needed. #[id number] [facility]
[2019-08-30] MEDS ORDERED: CLOPIDOGREL 75 MG TAB ONE (18:09)
[2019-08-30] MEDS ORDERED: ACETAMINOPHEN W/COD #3 TAB 1 EA TAB ONE (19:06)
[2019-08-30] MEDS ORDERED: traMADol HCL 50 MG TAB ONE (19:22)
[2019-08-30] MEDS ORDERED: GABAPENTIN 300 MG CAP ONE (19:39)
[2019-08-30] MEDS: GABAPENTIN 100 MG CAP PO SCH (19:44)
[2019-08-30] MEDS: traMADol HCL 50 MG TAB PO PRN (19:44)
[2019-08-30] MEDS: ENOXAPARIN SODIUM 30 MG/0.3 ML SYG SUBCU SCH (20:18)
[2019-08-30] MEDS: ACETAMINOPHEN 325 MG TAB PO PRN (22:35)
[2019-08-31] MEDS: MEROPENEM 1 GM in SODIUM CHL 0.9% 50ML MIN-BAG+ 50 ML IVPB SCH ×2 (00:24→12:29)
[2019-08-31] MEDS: INSULIN LISPRO 100 UNITS/ML PEN SUBCU SCH ×4 (00:24→18:25)
[2019-08-31] MEDS ORDERED: IBUPROFEN 400 MG TAB PO ONE (00:28)
[2019-08-31] MEDS: traMADol HCL 50 MG TAB PO PRN ×2 (04:33→15:54)
[2019-08-31] MEDS ORDERED: NON-FORMULARY MEDICATION 1 EA MIS (Atorvastatin Calcium [Lipitor] 40 MG) PO SCH (09:00)
[2019-08-31] MEDS ORDERED: ALLOPURINOL 300 MG TAB PO SCH (09:00)
[2019-08-31] MEDS ORDERED: MAGNESIUM SULFATE PREMIX 2GM 2 GM in PREMIX BAG 1 BAG IVPB ONE (09:08)
--- NOTE | 2019-08-31 09:21 | RAD ---
Study: Frontal and Lateral Radiographs of the Chest. Indication: sepsis Comparison: July 22, 2019 Impression: Cardiomegaly. Interstitial markings prominent bilaterally and progressed compared to prior consistent with pulmonary edema or pneumonia. Mild basilar opacities. Tiny pleural effusions. Follow-up to resolution recommended. No pneumothorax. No acute osseous abnormality. Electronically signed by: Gaurav Adair MD 08/31/2019 9:19 AM ENFORCEMENT SAFETY OFFICER
[2019-08-31] MEDS ORDERED: MAGNESIUM SULFATE PREMIX 2GM 50 ML IVPB ONE (10:12)
[2019-08-31] MEDS: ALLOPURINOL 100 MG TAB PO SCH (10:17)
[2019-08-31] MEDS: GABAPENTIN 100 MG CAP PO SCH ×2 (10:17→20:08)
[2019-08-31] MEDS: hydroCHLOROthiazide 12.5 MG CAP PO SCH (10:17)
[2019-08-31] MEDS: FUROSEMIDE 40 MG TAB PO SCH (10:17)
[2019-08-31] MEDS: ISOSORBIDE MONONITRATE (IMDUR) 30 MG TAB PO SCH (10:17)
[2019-08-31] MEDS: KCL 20MEQ/0.45% NS 1,000 ML IVS PRN (10:17)
[2019-08-31] MEDS: hydrOXYzine HCl 25 MG TAB PO PRN (10:17)
[2019-08-31] MEDS: METOPROLOL SUCCINATE XL 50 MG TAB PO SCH (10:17)
[2019-08-31] MEDS: ATORVASTATIN 20 MG TAB PO SCH (10:17)
[2019-08-31] MEDS: ASPIRIN (ENTERIC COATED) 81 MG TAB PO SCH (10:17)
[2019-08-31] MEDS ORDERED: MEROPENEM 1 GM VIAL IVPB ONE ×2 (12:25→19:57)
[2019-08-31] MEDS ORDERED: SODIUM CHL 0.9% 50ML MIN-BAG+ 50 ML IVPB ONE ×2 (12:25→19:56)
--- NOTE | 2019-08-31 14:34 | PN ---
SUPERVISING PHYSICIAN: Umair Babcock MD DATE: 08/31/19 SUBJECTIVE: The patient is sitting up in bed. She has no complaints of shortness of breath, nausea or vomiting. She does say she is having a difficult time eating because she is not hungry, but she does admit that she is feeling much better than she has been. OBJECTIVE: VITAL SIGNS: Temperature 97.6. Heart rate 83. Blood pressure 105/55. Respiratory rate 16. O2 saturation 95% on 2 liters nasal cannula. RESPIRATORY: Essentially clear to auscultation bilaterally. CARDIAC: Regular rate and rhythm. GASTROINTESTINAL: Abdomen is soft, nondistended. It is mildly tender in the suprapubic area. She does have mild bilateral CVA tenderness. NEUROLOGIC: She is awake, alert and oriented x3. LABORATORY: WBC 16.2, hemoglobin 8.1, hematocrit 25. Blood sugars have been running between 157 and 205. Electrolytes are basically within normal limits with the exception of her calcium slightly low at 8.3 and magnesium 1.4. She had 3 of 4 blood cultures that preliminary show gram negative bacilli. Throat culture is pending. Chest x-ray shows no acute abnormality. All other labs and films have been reviewed via the EMR. ASSESSMENT: 1. Sepsis with temperature of 102.4, hypotension with blood pressure 80s/50s, tachycardic rate of 103 and WBC greater than 17,000. 2. Acute pyelonephritis, bilateral. 3. Type 2 diabetes with brittle control. 4. Coronary artery disease. 5. History of recurrent urinary tract infections requiring numerous hospitalizations over the past three months. 6. Mild electrolyte imbalance including hypocalcemia and hypomagnesemia. PLAN: We will continue present supportive care including her Merrem. I have encouraged good pulmonary hygiene and will order some incentive spirometry. Physical therapy will also be consulted for strengthening and conditioning. I will follow her cultures as they are resulted. I will order lab for in the morning. We will continue to monitor the patient closely and follow as needed. #[id number] [facility]
[2019-08-31] MEDS: ACETAMINOPHEN 325 MG TAB PO PRN ×2 (15:54→23:32)
[2019-08-31] MEDS ORDERED: LEVALBUTEROL NEBS 1.25 MG/3 ML VIAL NEB PRN (17:00)
[2019-08-31] MEDS ORDERED: LEVALBUTEROL NEBS 1.25 MG/3 ML VIAL NEB ONE (17:44)
[2019-08-31] MEDS: ENOXAPARIN SODIUM 30 MG/0.3 ML SYG SUBCU SCH (20:08)
[2019-08-31] MEDS: LEVALBUTEROL NEBS 1.25 MG/3 ML VIAL NEB SCH (20:28)
[2019-08-31] MEDS ORDERED: SODIUM CHLORIDE 0.9% 1000ML 1,000 ML IVS ONE (23:47)
[2019-08-31] MEDS ORDERED: ACETAMINOPHEN IVPB ONE (23:58)
[2019-09-01] MEDS ORDERED: ACETAMINOPHEN IV 1000MG 100 ML ONE ×2 (00:01→04:57)
[2019-09-01] MEDS: MEROPENEM 1 GM in SODIUM CHL 0.9% 50ML MIN-BAG+ 50 ML IVPB SCH ×2 (01:14→12:26)
[2019-09-01] MEDS: INSULIN LISPRO 100 UNITS/ML PEN SUBCU SCH ×4 (01:17→18:20)
[2019-09-01] MEDS ORDERED: ACETAMINOPHEN 325 MG TAB PO ONE (01:45)
[2019-09-01] MEDS ORDERED: diphenhydrAMINE HCL 50 MG/ML VIAL IV ONE (01:45)
[2019-09-01] MEDS ORDERED: FUROSEMIDE INJ 40 MG/4 ML VIAL IV ONE ×2 (01:45→16:08)
[2019-09-01] MEDS ORDERED: SODIUM CHLORIDE 0.9% 500ML 500 ML IVS SCH (02:00)
[2019-09-01] MEDS ORDERED: ACETAMINOPHEN IV 1000MG 1,000 MG in PREMIX BOTTLE 1 BOTTLE IVPB ONE (04:57)
[2019-09-01] MEDS: LEVALBUTEROL NEBS 1.25 MG/3 ML VIAL NEB SCH ×4 (08:50→20:16)
[2019-09-01] MEDS: FUROSEMIDE 40 MG TAB PO SCH (09:01)
[2019-09-01] MEDS: METOPROLOL SUCCINATE XL 50 MG TAB PO SCH (09:01)
[2019-09-01] MEDS: hydroCHLOROthiazide 12.5 MG CAP PO SCH (09:01)
[2019-09-01] MEDS: ISOSORBIDE MONONITRATE (IMDUR) 30 MG TAB PO SCH (09:01)
[2019-09-01] MEDS: ALLOPURINOL 100 MG TAB PO SCH (09:02)
[2019-09-01] MEDS: ATORVASTATIN 20 MG TAB PO SCH (09:02)
[2019-09-01] MEDS: GABAPENTIN 100 MG CAP PO SCH ×2 (09:02→21:57)
[2019-09-01] MEDS: ASPIRIN (ENTERIC COATED) 81 MG TAB PO SCH (09:03)
[2019-09-01] MEDS ORDERED: MEROPENEM 1 GM VIAL IVPB ONE (11:59)
[2019-09-01] MEDS ORDERED: SODIUM CHL 0.9% 50ML MIN-BAG+ 50 ML IVPB ONE (11:59)
[2019-09-01] MEDS: ACETAMINOPHEN 325 MG TAB PO PRN ×2 (14:14→21:57)
[2019-09-01] MEDS: KCL 20MEQ/0.45% NS 1,000 ML IVS PRN (15:52)
[2019-09-01] MEDS: traMADol HCL 50 MG TAB PO PRN (16:46)
--- NOTE | 2019-09-01 19:40 | PN ---
SUPERVISING PHYSICIAN: Umair Babcock MD DATE: 09/01/19 TIME: 1:30 AM SUBJECTIVE: I was called to the hospital to see the patient. She had had an elevated temperature and became somewhat unresponsive. Labs were drawn and her WBCs were 7,700, but her hemoglobin was 7.5 and hematocrit was 22.8. Sodium was slightly low at 131, but otherwise her chemistries were basically unremarkable. Lactic acid 2.2. Her systolic blood pressure dropped to the 70s and 80s. She did have 103.3 temperature and her heart rate was up to 107 with a respiratory rate of 28. We gave the patient some Tylenol followed by ibuprofen shortly thereafter. She was given some fluids and was typed and crossed to give 2 units of packed red blood cells. After initial bolus of fluids and the Tylenol and Motrin, her vital signs slightly improved. Her temperature was 100.7, systolic blood pressure came up to the 90s. Respiratory rate continued to be in the mid- 20s and she was mostly unresponsive. She would open her eyes, but otherwise did not respond verbally. OBJECTIVE: RESPIRATORY: Lungs has a few scattered crackles in the apices. CARDIAC: Tachycardic rate and regular rhythm. GASTROINTESTINAL: Abdomen is soft, nondistended, nontender. Bowel sounds positive. NEUROLOGIC: She was lethargic. She opened her eyes. Occasionally she would squeeze her hands, but she was nonverbal. LABORATORY: As reported above. ASSESSMENT: 1. Sepsis related to acute pyelonephritis with two positive blood cultures. She had a temperature of 103.3 with heart rate greater than 100, blood pressures were in the 70s and 80s/50s. Her white count was 7,700. 2. Anemia of unknown etiology. PLAN: We will continue present supportive care including her antibiotics. I will give her 2 units of packed red blood cells and we will monitor her cultures. They should become available today or early tomorrow. I will guaiac her stools. We will get lab in the morning after her blood transfusion. We will monitor closely this morning. We will reevaluate need for transfer. CRITICAL CARE TIME: 45 minutes #[id number] [facility]
--- NOTE | 2019-09-01 19:47 | PN ---
SUPERVISING PHYSICIAN: Umair Babcock MD DATE: 09/01/19 SUBJECTIVE: The patient has much improved this morning. She is awake and alert. She actually answers questions appropriately. She is still feeling quite weak although she does not remember early this morning when she became lethargic. She denies any chest pain, nausea or vomiting. She is somewhat short of breath, especially with any exertion. She also denies any recent history of bright red stools or black tarry stools. She said she did have some anemia problems several years ago, but does not remember much about it. OBJECTIVE: VITAL SIGNS: Temperature 97.3. Heart rate 77. Blood pressure 109/76. Respiratory rate 20. O2 saturation 99% on 3 liters nasal cannula. RESPIRATORY: She has crackles scattered throughout. She is tachypneic when she talks. She does have to speak in 2 to 3 word phrases. CARDIAC: Regular rate and rhythm. GASTROINTESTINAL: Abdomen is soft, nondistended, nontender. Bowel sounds positive. EXTREMITIES: No cyanosis, clubbing or edema. NEUROLOGIC: She is awake, slightly lethargic, but she is oriented x3. LABORATORY: WBC 8.7, hemoglobin 10.7, hematocrit 32.9. Blood sugars have run between 138 and 231. Preliminary blood cultures show no growth after 48 hours. Urine culture is pending. All other labs and films have been reviewed via the EMR. ASSESSMENT: 1. Sepsis with an admitting temperature of 102.4, hypotension with blood pressure in the 80s/50s, tachycardic rate of 103 and WBC greater than 17,000. 2. Acute pyelonephritis, bilateral. 3. Anemia of unknown etiology. 4. Type 2 diabetes with brittle control. 5. Coronary artery disease. 6. History of recurrent urinary tract infections requiring numerous hospitalizations over the past three months. 7. Mild electrolyte imbalance including hypocalcemia and hypomagnesemia, improved. PLAN: We will continue present supportive care including closely monitoring the patient over the next few days. She has been quite ill and I am not sure she is out of the morrell yet. Hopefully when her cultures are resulted, we will get a better picture of her treatment plan. I have also ordered stool guaiacs and she may need a GI workup after discharge. I ordered lab and chest x-ray for in the morning. We will continue to monitor the patient closely and follow as needed. #[id number] [facility]
[2019-09-01] MEDS ORDERED: HALOPERIDOL LACTATE INJ 5 MG/ML VIAL IM PRN (19:49)
[2019-09-01] MEDS: diphenhydrAMINE HCL 50 MG/ML VIAL IV PRN (19:56)
[2019-09-01] MEDS: ENOXAPARIN SODIUM 30 MG/0.3 ML SYG SUBCU SCH (21:51)
[2019-09-01] MEDS: IV SET AND CAP CHANGE INJ INJ SCH (23:00)
[2019-09-02] MEDS: INSULIN LISPRO 100 UNITS/ML PEN SUBCU SCH ×5 (00:20→20:46)
[2019-09-02] MEDS ORDERED: SODIUM CHL 0.9% 50ML MIN-BAG+ 50 ML IVPB ONE ×3 (02:20→19:41)
[2019-09-02] MEDS ORDERED: MEROPENEM 1 GM VIAL IVPB ONE ×3 (02:21→19:41)
[2019-09-02] MEDS: MEROPENEM 1 GM in SODIUM CHL 0.9% 50ML MIN-BAG+ 50 ML IVPB SCH ×2 (02:21→13:49)
[2019-09-02] MEDS ORDERED: LEVALBUTEROL NEBS 1.25 MG/3 ML VIAL NEB ONE ×2 (02:26→08:00)
--- NOTE | 2019-09-02 06:41 | RAD ---
EXAM DESCRIPTION: Chest,1 View CLINICAL HISTORY: 74 years Female, sob COMPARISON: Previous study August 31, 2019 TECHNIQUE: AP portable chest. FINDINGS: Heart size is large with increased pulmonary vascularity. No consolidating infiltrate. No pulmonary mass or worrisome nodule. No pneumothorax or pleural effusion. Bones are unremarkable. IMPRESSION: Large heart with increased vascularity. Electronically signed by: Arun Hayward MD 09/02/2019 6:39 AM COIN MACHINE MECHANIC
[2019-09-02] MEDS ORDERED: INSULIN LISPRO 100 UNITS/ML PEN SUBCU SCH (07:00)
[2019-09-02] MEDS ORDERED: SODIUM BICARBONATE VIAL 75 MEQ in DEXTROSE 5% 1000ML 1,000 ML IVS SCH ×2 (07:00→07:02)
[2019-09-02] MEDS ORDERED: SODIUM BICARBONATE VIAL 75 MEQ in DEXTROSE 5% 1000ML 1,000 ML IVS PRN (07:06)
[2019-09-02] MEDS ORDERED: DEX 5% W/NACL 0.9% 1000ML 1,000 ML IVS ONE (09:21)
[2019-09-02] MEDS ORDERED: DEXTROSE 5% 1000ML 1,000 ML IVS ONE ×2 (09:43→23:51)
[2019-09-02] MEDS ORDERED: SODIUM BICARBONATE VIAL 50 MEQ/50 ML VIAL ONE ×2 (09:43→23:51)
[2019-09-02] MEDS: GABAPENTIN 300 MG CAP PO SCH ×2 (10:17→20:21)
[2019-09-02] MEDS: ISOSORBIDE MONONITRATE (IMDUR) 30 MG TAB PO SCH (10:17)
[2019-09-02] MEDS: ALLOPURINOL 100 MG TAB PO SCH (10:17)
[2019-09-02] MEDS: hydrOXYzine HCl 25 MG TAB PO PRN (10:17)
[2019-09-02] MEDS: METOPROLOL SUCCINATE XL 50 MG TAB PO SCH (10:18)
[2019-09-02] MEDS: ASPIRIN (ENTERIC COATED) 81 MG TAB PO SCH (10:18)
[2019-09-02] MEDS: hydroCHLOROthiazide 12.5 MG CAP PO SCH (10:18)
[2019-09-02] MEDS: FUROSEMIDE 40 MG TAB PO SCH (10:18)
[2019-09-02] MEDS: ATORVASTATIN 20 MG TAB PO SCH (10:18)
[2019-09-02] MEDS: LEVALBUTEROL NEBS 1.25 MG/3 ML VIAL NEB SCH ×3 (13:44→20:30)
[2019-09-02] MEDS: diphenhydrAMINE HCL 50 MG/ML VIAL IV PRN ×2 (13:50→19:58)
[2019-09-02] MEDS: ACETAMINOPHEN 325 MG TAB PO PRN (18:02)
[2019-09-02] MEDS: ENOXAPARIN SODIUM 30 MG/0.3 ML SYG SUBCU SCH (20:22)
[2019-09-02] MEDS: SODIUM BICARBONATE VIAL 75 MEQ in DEXTROSE 5% 1000ML 1,000 ML IVS PRN (23:53)
[2019-09-03] MEDS: MEROPENEM 1 GM in SODIUM CHL 0.9% 50ML MIN-BAG+ 50 ML IVPB SCH ×2 (01:58→13:39)
[2019-09-03] MEDS ORDERED: FUROSEMIDE INJ 40 MG/4 ML VIAL IV ONE (05:55)
[2019-09-03] MEDS ORDERED: AZITHROMYCIN IV 500 MG VIAL IVPB ONE ×2 (06:06→19:36)
[2019-09-03] MEDS ORDERED: SODIUM CHLORIDE 0.9% 250ML 250 ML ONE ×2 (06:06→19:35)
[2019-09-03] MEDS: AZITHROMYCIN IV 500 MG in SODIUM CHLORIDE 0.9% 250ML 250 ML IVPB SCH (06:11)
--- NOTE | 2019-09-03 07:12 | RAD ---
CHEST, ONE VIEW XR CLINICAL HISTORY: short of breath COMPARISON: 09/02/2019 TECHNIQUE: AP Chest. FINDINGS: Heart is enlarged. Mild aortic atherosclerosis. There is pulmonary vascular congestion. No pneumothorax. No pleural fluid. No airspace consolidation. Soft tissues and bones are unremarkable. IMPRESSION: 1. Mild cardiomegaly with pulmonary vascular congestion. Electronically signed by: Piedad Fletcher DO 09/03/2019 7:10 AM CABLE TV INSTALLER
[2019-09-03] MEDS: INSULIN LISPRO 100 UNITS/ML PEN SUBCU SCH ×4 (07:39→21:16)
[2019-09-03] MEDS: LEVALBUTEROL NEBS 1.25 MG/3 ML VIAL NEB SCH ×4 (08:00→20:56)
--- NOTE | 2019-09-03 08:40 | PN ---
SUPERVISING PHYSICIAN: Umair Babcock MD DATE: 09/02/19 SUBJECTIVE: The patient is sitting up on the side of the bed although she has some shortness of breath. She has been more alert and awake today although at times her mental status is more lethargic. She does deny any shortness of breath, nausea or vomiting. There is no chest pain. OBJECTIVE: VITAL SIGNS: Temperature 98.6. Heart rate 98. Blood pressure 148/73. Respiratory rate 24. O2 saturation 98ds% on 3 liters nasal cannula. RESPIRATORY: Diminished breath sounds throughout. CARDIAC: Regular rate and rhythm. GASTROINTESTINAL: Abdomen is soft, nondistended, nontender. Bowel sounds positive. NEUROLOGIC: She is awake and alert. She is oriented to person only. LABORATORY: White count 7,200, hemoglobin 10.4, hematocrit 31.1. She has a left shift on her differential. Blood sugars have run between 173 and 244. Sodium 132, potassium 4.4, chloride 104, carbon dioxide 14, BUN 74, creatinine 3.39. Calcium 8.1, magnesium 1.8. Preliminary blood cultures show no growth after 4 days. Chest x-ray shows large heart with increased vascularity. All other labs and films have been reviewed via the EMR. ASSESSMENT: 1. Sepsis with an admitting temperature of 102.4, hypotension with blood pressure in the 80s/50s, tachycardic rate of 103 and WBC greater than 17,000. 2. Acute pyelonephritis, bilateral. 3. Acute renal failure with metabolic acidosis. 4. Anemia of unknown etiology. 5. Type 2 diabetes with brittle control. 6. Coronary artery disease. 7. History of recurrent urinary tract infections requiring numerous hospitalizations over the past three months. 8. Mild electrolyte imbalance including hypocalcemia and hypomagnesemia, improved. PLAN: We will continue present supportive care. I spoke with Dr. Carver, semiconductor testing group leader in [place], today and he recommended a bicarb drip to correct her CO2. She has improved, but she still has bouts of lethargy as well as high temperatures. I will repeat her lab in the morning. Hopefully in the next 1 to 2 days she will improve to the point that she can be discharged. I am not sure at this time if she will be able to be discharged home or she will need a long- term care facility or a rehab hospital, but I will discuss that with her over the next day or 2. She will also need to see Dr. Carver on discharge. We will need to get her up and move her around. Physical Therapy did see her and sat her on the side of the bed, but she will need more aggressive physical therapy at some point. We will continue to monitor the patient closely and follow as needed. #[id number] MTDD
--- NOTE | 2019-09-03 12:55 | CT ---
EXAM DESCRIPTION: Head CLINICAL HISTORY: 74 years, Female, tia/cva sxs COMPARISON: None TECHNIQUE: Head CT was performed without IV contrast. This exam was performed according to our departmental dose-optimization program, which includes automated exposure control, adjustment of the mA and/or kV according to patient size and/or use of iterative reconstruction technique. FINDINGS: No acute intracranial hemorrhage. No midline shift. The ventricles are not dilated. Chronic ischemic microvascular changes in the periventricular white matter without cortical infarct or intracranial mass. No posterior fossa lesion. Mild mucoperiosteal thickening in the right maxillary sinus. Small bilateral mastoid air cell effusions. No calvarial lesion. Vascular calcifications. IMPRESSION: Vascular calcifications and chronic ischemic microvascular changes without acute intracranial abnormality. If symptoms persist or worsen, followup head CT in 24 hr or MRI is recommended. Small bilateral mastoid air cell effusions. Electronically signed by: Primo Bravo MD 09/03/2019 12:53 PM [facility]
[2019-09-03] MEDS: ASPIRIN (ENTERIC COATED) 81 MG TAB PO SCH (13:35)
[2019-09-03] MEDS: ATORVASTATIN 20 MG TAB PO SCH (13:36)
[2019-09-03] MEDS: FUROSEMIDE 40 MG TAB PO SCH (13:36)
[2019-09-03] MEDS: ISOSORBIDE MONONITRATE (IMDUR) 30 MG TAB PO SCH (13:36)
[2019-09-03] MEDS: hydroCHLOROthiazide 12.5 MG CAP PO SCH (13:36)
[2019-09-03] MEDS: METOPROLOL SUCCINATE XL 50 MG TAB PO SCH (13:37)
[2019-09-03] MEDS: GABAPENTIN 300 MG CAP PO SCH (13:37)
[2019-09-03] MEDS: ALLOPURINOL 100 MG TAB PO SCH (13:38)
[2019-09-03] MEDS ORDERED: SODIUM CHL 0.9% 50ML MIN-BAG+ 50 ML IVPB ONE ×2 (13:39→19:35)
[2019-09-03] MEDS ORDERED: MEROPENEM 1 GM VIAL IVPB ONE ×2 (13:39→19:36)
[2019-09-03] MEDS ORDERED: ACETAMINOPHEN IV 1000MG 1,000 MG in PREMIX BOTTLE 1 BOTTLE IVPB PRN (14:25)
[2019-09-03] MEDS ORDERED: SODIUM BICARBONATE VIAL 50 MEQ/50 ML VIAL ONE (15:51)
[2019-09-03] MEDS ORDERED: DEXTROSE 5% 1000ML 1,000 ML IVS ONE (15:51)
[2019-09-03] MEDS: SODIUM BICARBONATE VIAL 75 MEQ in DEXTROSE 5% 1000ML 1,000 ML IVS PRN (15:56)
[2019-09-03] MEDS ORDERED: METOCLOPRAMIDE HCL INJ 10 MG/2 ML VIAL IV SCH (19:00)
[2019-09-03] MEDS ORDERED: METOCLOPRAMIDE HCL INJ 10 MG/2 ML VIAL ONE ×2 (19:36→19:37)
[2019-09-03] MEDS: SODIUM CHLORIDE 0.9% (FLUSH) 10 ML SYG IV PRN ×2 (19:45→21:21)
[2019-09-03] MEDS: ENOXAPARIN SODIUM 30 MG/0.3 ML SYG SUBCU SCH (21:17)
[2019-09-03] MEDS ORDERED: ACETAMINOPHEN SUPPOSITORY 650 MG PR PRN (22:08)
[2019-09-03] MEDS ORDERED: ACETAMINOPHEN IV 1000MG 100 ML ONE (22:09)
[2019-09-03] MEDS: METOPROLOL TARTRATE INJ 5 MG/5 ML VIAL IV SCH (22:21)
[2019-09-03] MEDS ORDERED: ACETAMINOPHEN IV 1000MG 1,000 MG in PREMIX BOTTLE 1 BOTTLE IVPB ONE (22:24)
[2019-09-04] MEDS: MEROPENEM 1 GM in SODIUM CHL 0.9% 50ML MIN-BAG+ 50 ML IVPB SCH (01:41)
[2019-09-04] MEDS: METOPROLOL TARTRATE INJ 5 MG/5 ML VIAL IV SCH ×2 (04:07→10:58)
[2019-09-04] MEDS: SODIUM CHLORIDE 0.9% (FLUSH) 10 ML SYG IV PRN (04:08)
[2019-09-04] MEDS: AZITHROMYCIN IV 500 MG in SODIUM CHLORIDE 0.9% 250ML 250 ML IVPB SCH (05:36)
[2019-09-04] MEDS: INSULIN LISPRO 100 UNITS/ML PEN SUBCU SCH (07:43)
[2019-09-04] MEDS ORDERED: SODIUM BICARBONATE VIAL 50 MEQ/50 ML VIAL IV ONE (07:59)
[2019-09-04] MEDS: SODIUM BICARBONATE VIAL 75 MEQ in DEXTROSE 5% 1000ML 1,000 ML IVS PRN (08:06)
[2019-09-04] MEDS ORDERED: DEXTROSE 5% 1000ML 1,000 ML IVS ONE (08:06)
--- NOTE | 2019-09-04 08:29 | PN ---
SUPERVISING PHYSICIAN: Umair Babcock MD DATE: 09/03/19 SUBJECTIVE: The patient is sitting up in bed. Her and daughter are at the bedside. She has moments where she is very alert and with it but at this time she is rather lethargic. She does open her eyes, she answers some simple yes/no questions appropriate. I had a long discussion with her daughter. She has primary care physician in [place] and most of her problems at the time she was in [facility] in [facility] and then she went to rehabilitation in [place]. The daughter felt like she had some stroke-like symptoms during that time and she has had bouts of confusion since then. We discussed her discharge planning including going to a retirement or rehabilitation facility. At this point, she would like to have a clean bed but she is open to any suggestions. Nursing has reported that the patient has had some low oxygen saturation and has been required to be put on BIPAP. She is doing well on this, at this time her breathing is labored. OBJECTIVE: VITAL SIGNS: Temperature 100.4. Heart rate 101, has been as high as 112. Blood pressure 130/63. Respiratory rate 30. O2 saturation 95% on biPAP. . RESPIRATORY: Diminished at the bases. CARDIAC: Regular rate and rhythm. GASTROINTESTINAL: Abdomen is soft, nondistended, nontender. Bowel sounds positive. NEUROLOGIC: She is awake but somewhat lethargic. She opens her eyes to commands and at times she does answer some simple questioning.. LABORATORY: White count 4,600, hemoglobin 10.2, hematocrit 30.4. She has a left shift on her differential. Blood bas a PCO2 of 34, PO2 of 111. Bicarb 18.9, pH 7.35, 02 saturation 97.6%. Base excess is negative at 6. Blood sugars have run between 135 and 190. Electrolytes - sodium 134, potassium 3.8, chloride 104, carbon dioxide 17, BUN 79, creatinine 3.33. Calcium 7.9, magnesium 1.9. Her first set of blood cultures show E. coli that is showing multiple resistants, the only 2 medications sensitive are meropenem and Bactrim. She is presently on meropenem. Her second set of were sill preliminary. Chest x-ray shows mild cardiomegaly; with pulmonary vascular congestion. Head CT shows vascular calcifications and chronic ischemic microvascular changes without acute intracranial abnormality. If symptoms persist or worsen, followup head CT in 24 hours. MRI is recommended. All other labs and films have been reviewed via the EMR. ASSESSMENT: 1. Sepsis with an admitting temperature of 102.4, hypotension with blood pressure in the 80s/50s, tachycardic rate of 103 and WBC greater than 17,000. 2. Acute pyelonephritis, bilateral. 3. Acute renal failure with metabolic acidosis. 4. Anemia of unknown etiology. 5. Type 2 diabetes with brittle control. 6. Coronary artery disease. 7. History of recurrent urinary tract infections requiring numerous hospitalizations over the past three months. 8. Mild electrolyte imbalance including hypocalcemia and hypomagnesemia, improved. PLAN: We will continue present supportive care. I will continue with her D5W with bicarb and repeat her lab tomorrow. Hopefully her creatinine and C02 will improved. Will use the BiPAP as needed. At this point, her prognosis is fairly poor and she may have to have a long-term treatment of antibiotics. She is on meropenem but we need to touch base with Dr. Sutton on Thursday to see how long her treatment needs to be. Her family would like her to go to swing bed but I feel like she may need to go to a retirement that provides antibiotic treatments. At this point, her vital signs are fairly stable, although her breathing has been erratic and not as stable. We may need to add some extra antibiotics and I have discontinued her p.o. medications and I changed her metoprolol to IV as well as her Lasix to IV. Her other p.o. medications have been discontinued due to concerns for aspiration. Dr. Carver may also need to be consulted at some point in regards to her renal failure and we will continue to monitor closely and follow as needed. #[id number] [facility]
[2019-09-04] MEDS: LEVALBUTEROL NEBS 1.25 MG/3 ML VIAL NEB SCH ×2 (08:50→11:55)
[2019-09-04] MEDS ORDERED: FUROSEMIDE INJ 40 MG/4 ML VIAL IV SCH (09:00)
[2019-09-04] MEDS: ISOSORBIDE MONONITRATE (IMDUR) 30 MG TAB PO SCH (10:58)
[2019-09-04 11:19] VITALS: BP 140/67; TEMP 100.2; O2SAT 96
--- NOTE | 2019-09-22 14:18 | DS ---
SUPERVISING PHYSICIAN: Umair Babcock MD ADMISSION DIAGNOSIS: 1. Sepsis. 2. Acute pyelonephritis, bilateral. 3. Tachycardia. 4. Type 2 diabetes with brittle control. 5. Coronary artery disease. 6. History of recurrent urinary tract infections requiring numerous hospitalizations over the past three months. DISCHARGE DIAGNOSIS: 1. Sepsis with an admitting temperature of 102.4, hypotension with blood pressure in the 80s/50s, tachycardic rate of 103 and WBC greater than 17,000, with the patient being refractory to treatment, requiring transfer to higher level of care. 2. Acute bilateral pyelonephritis, not responding as expected to treatment, requiring transfer to higher level of care. 3. Persistent renal failure with increasing metabolic acidosis. 4. Anemia of unknown etiology. 5. Type 2 diabetes with brittle control. 6. Coronary artery disease. 7. History of recurrent urinary tract infections requiring numerous hospitalizations over the past three months. 8. Mild electrolyte imbalance including hypocalcemia and hypomagnesemia, improved. REASON FOR HOSPITALIZATION: Ms. Willson is a 74-year-old female who came to the Emergency Room because she felt sick and was a little confused for the past couple of days. The patient has been hospitalized twice in the [place] area this year already for recurrent urinary tract infections. She was recently discharged after a five day stay in [place] to a rehab hospital where she stayed an additional ten days. She has been home now for a little over two weeks and still has not got her strength back. In the Emergency Room today, she was found to have evidence of bilateral pyelonephritis and is going to be admitted to the hospital for empiric antibiotic therapy as we await culture results. At this time, the patient does not appear to be septic and so we feel we can handle her here although she does have numerous comorbidities and a history of septicemia. LABORATORY: White count at transfer was 6,200, hemoglobin 11.2, hematocrit 33.3, platelet count 57,000. Differential did show a left shift. Chemistries on discharge showed sodium 136, potassium 3.5, BUN 77, creatinine 2.86, calcium 8.3. Blood sugars range between 153 and 173. MICROBIOLOGY: Final blood culture showed an Escherichia coli that was ESBL that was highly resistant to everything except imipenem, Zosyn and Bactrim. Final urine culture results showed greater than 100,000 colony forming units/mL, microbial fibrinogen present. Group A Strep culture was negative. Influenza A and B by PCR was negative. RADIOLOGY: Abdominopelvic CT on admission per radiologic interpretation demonstrated mild bilateral perinephric stranding, more pronounced on the left compared to previous exam. There was note of an infiltrate in the lower lung nicholson suggesting pneumonia. This was followed up with multiple chest x-rays. Last chest x-ray on 09/03/19 showed mild cardiomegaly with pulmonary vascular congestion. HOSPITAL COURSE: Ms. Willson was admitted for sepsis secondary to pyelonephritis and acute renal failure. She was started on treatment with Rocephin initially and then changed over to meropenem. She was showing some improvement, however, was not resolving as expected. Her creatinine continued to be elevated. After talking to Dr. Carver, the patient is going to be transferred to [facility] for higher level of care. PLAN: The patient was transferred to [facility] for higher level of care not available in [place]. The patient was discharged in stable condition and transported via ground ambulance. She did clinically well, but was not responding to treatment as expected and we transferred her to [facility] for higher level of care. DISPOSITION: The patient was transferred to [facility]. #[id number] MTDD
== END 2019-09-04 12:05 | disposition short-term general hospital (02) | DRG 872 ==
LOC: ER 17:43 → MS 21:50 → OBSVTOIN 21:50
PROVIDERS: ADMIT Family Medicine; ATTEND Nurse Practitioner Family
PROC: 30233N1 Transfusion of Nonautologous Red Blood Cells into Peripheral Vein, Percutaneous Approach (ICD-10-PCS; principal; 2019-09-01)
DX: A41.51 Sepsis due to Escherichia coli [E. coli] (principal); N10 Acute pyelonephritis; E87.2 Acidosis; N17.9 Acute kidney failure, unspecified; Z16.12 Extended spectrum beta lactamase (ESBL) resistance; Z16.24 Resistance to multiple antibiotics; D64.9 Anemia, unspecified; E11.22 Type 2 diabetes mellitus with diabetic chronic kidney disease; I12.9 Hypertensive chronic kidney disease with stage 1 through stage 4 chronic kidney disease, or unspecified chronic kidney disease; E83.42 Hypomagnesemia; E83.51 Hypocalcemia; N18.3 Chronic kidney disease, stage 3 (moderate); I25.10 Atherosclerotic heart disease of native coronary artery without angina pectoris; E78.5 Hyperlipidemia, unspecified; G89.29 Other chronic pain; M54.5 Low back pain; Z90.49 Acquired absence of other specified parts of digestive tract; Z95.5 Presence of coronary angioplasty implant and graft; Z79.4 Long term (current) use of insulin; Z88.0 Allergy status to penicillin; Z79.891 Long term (current) use of opiate analgesic; Z79.899 Other long term (current) drug therapy

== ENCOUNTER → 2019-10-10 | Outpatient (CLI) | payer MEDICARE, OTHER | LOC: YCHH 14:51 | PROVIDERS: ATTEND Family Medicine | DX: N39.0 Urinary tract infection, site not specified (principal) ==

== ENCOUNTER → 2019-10-25 | Outpatient (CLI) | payer MEDICARE, OTHER | LOC: YCHH 08:31 | PROVIDERS: ATTEND Family Medicine | DX: E11.22 Type 2 diabetes mellitus with diabetic chronic kidney disease (principal); N18.9 Chronic kidney disease, unspecified; I13.0 Hypertensive heart and chronic kidney disease with heart failure and stage 1 through stage 4 chronic kidney disease, or unspecified chronic kidney disease; I50.9 Heart failure, unspecified; D63.1 Anemia in chronic kidney disease; E03.9 Hypothyroidism, unspecified ==

== ENCOUNTER 2019-11-08 13:59 | Observation (INO) | payer MEDICARE, OTHER ==
[2019-11-08] MEDS ORDERED: SODIUM CHLORIDE 0.9% (FLUSH) 10 ML SYG IV PRN ×2 (14:15→17:33)
--- NOTE | 2019-11-08 14:28 | CT ---
PROVIDED CLINICAL HISTORY/REASON FOR EXAM: ALTERED LOC TECHNIQUE: Volumetric CT data of the brain was obtained without intravenous contrast. This exam was performed according to our departmental dose-optimization program, which includes automated exposure control, adjustment of the mA and/or kV according to patient size and/or use of iterative reconstruction technique. COMPARISON: September 03, 2019 FINDINGS: Age-related volume loss and chronic small vessel ischemic change. Atherosclerotic plaque in the carotid siphons. Septum pellucidum and third ventricle are midline. No acute infarction is evident by CT. No acute hemorrhage is present. No mass or mass effect is present. The calvaria and soft tissues are unremarkable. The visualized paranasal sinuses are unremarkable. IMPRESSION: No acute intracranial abnormalities. Electronically signed by: Car Razo MD 11/08/2019 2:27 PM CDT
--- NOTE | 2019-11-08 14:42 | RAD ---
EXAM DESCRIPTION: Chest,1 View CLINICAL HISTORY: confusion COMPARISON: Chest x-ray September 03, 2019. CT abdomen pelvis August 29, 2019 which includes the lung bases. FINDINGS: Portable semiupright view of the thorax. Scarring and/or atelectasis left lung base. No acute airspace disease is demonstrated. Heart and mediastinum is within normal limits. IMPRESSION: No acute process. Electronically signed by: Krzysztof Lazaro MD 11/08/2019 2:40 PM CDT
--- NOTE | 2019-11-08 16:57 | ED.PDOC ---
History of Present Illness - General Chief Complaint: Neuro Symptoms/Deficits Stated Complaint: poss CVA Time Seen by Provider: 11/08/19 14:14 Source: patient, RN notes reviewed, Vital Signs reviewed, EMS notes reviewed, family - Daughter Exam Limitations: clinical condition - Confusion. - History of Present Illness Initial Comments: Patient is a 74-year-old white female who was at home and last seen normal at noon today. Patient was found by her daughter at around 1230 on [address]. Apparently the patient had slipped. Per the daughter the patient is confused and not acting herself. EMS showed a blood sugar of 58 and the patient was given D10 with improvement of the blood sugar but minimal improvement of her symptoms. Patient has slurred speech and complains of left facial, left arm and left leg numbness. She denies any weakness. Timing/Duration: 1-3 hours Severity: severe Improving Factors: nothing Worsening Factors: nothing Associated Symptoms: other - Garbled speech and numbness on the left side of the body Allergies/Adverse Reactions: Allergies Penicillins Allergy (Verified 08/29/19 18:03) Home Medications: Ambulatory Orders Aspirin [Aspirin 81] 81 mg PO AM 10/18/12 Pantoprazole Sodium 40 mg PO 0630 10/18/12 Allopurinol [Zyloprim] 100 mg PO DAILY 01/17/16 Atorvastatin Calcium [Lipitor] 40 mg PO DAILY 01/17/16 BuPROPion SR [Wellbutrin SR] 150 mg PO DAILY 01/17/16 Furosemide Tab [Lasix Tab] 40 mg PO DAILY 01/17/16 Insulin Regular (Human) [Humulin R] 40 unit SUBCU BID 01/17/16 Isosorbide Mononitrate [Isosorbide Mononitrate ER] 30 mg PO DAILY 01/17/16 Metoprolol Succinate [Metoprolol Succinate ER] 50 mg PO DAILY 01/17/16 Insulin,Isop(Human(NPH) [Humulin N] 30 unit SUBCU BIDAC #1 pen 01/18/16 Ascorbic Acid [Vitamin C] 1,000 mg PO DAILY 07/22/19 Calcium Carbonate-Cholecalcife [Os-Endy Calcium + D3 500-200 mg-Unit] 1 tab PO DAILY 07/22/19 Cyanocobalamin [Vitamin B-12] 1,000 mcg IM MONTHLY 07/22/19 Gabapentin [Neurontin] 300 mg PO BID PRN 07/22/19 Hydrochlorothiazide 12.5 mg PO DAILY 07/22/19 [place]-3 Fatty Acids [[place] 3 1000 mg] 1 cap PO DAILY 07/22/19 Vit W/ Ferrous Fumara [] 1 tab PO DAILY 07/22/19 Probiotic Product [Digestive Advantage Probi] 2 chw PO DAILY 07/22/19 Tramadol HCl 50 mg PO Q8HRS PRN 07/22/19 hydrOXYzine HCl [Atarax] 25 mg PO DAILY PRN 07/22/19 Biotin 10,000 mcg SL 08/30/19 Vitamin B12 1 tablet SL DAILY 08/30/19 Azithromycin IV [Zithromax IV] 500 mg IVPB Q24H vial 09/04/19 Levalbuterol Nebs [Xopenex NEBS] 1.25 mg NEB RTQID vial 09/04/19 Meropenem [Merrem] 1 gm IVPB Q12H vial 09/04/19 Review of Systems - Review of Systems Constitutional: States: no symptoms reported, see HPI. Denies: fever, malaise, weakness EENTM: States: no symptoms reported. Denies: eye pain, blurred vision, double vision, mouth pain, mouth swelling Respiratory: States: no symptoms reported. Denies: cough, short of breath, wheezing Cardiology: States: no symptoms reported. Denies: chest pain, palpitations, syncope Gastrointestinal/Abdominal: States: no symptoms reported. Denies: abdominal pain, diarrhea, nausea, vomiting Genitourinary: States: no symptoms reported Musculoskeletal: Denies: no symptoms reported, back pain, joint pain, neck pain Skin: States: no symptoms reported. Denies: change in color, rash Neurological: States: see HPI, numbness, paresthesia. Denies: weakness Endocrine: States: no symptoms reported Hematologic/Lymphatic: States: no symptoms reported All other Systems: No Change from Baseline Past Medical History (General) - Patient Medical History Hx Seizures: No Hx Stroke: No Hx Dementia: No Hx Asthma: No Hx of COPD: No Hx Cardiac Disorders: Yes - CAD Hx Congestive Heart Failure: No Hx Pacemaker: No Hx Hypertension: Yes Hx Thyroid Disease: No Hx Diabetes: Yes Hx Gastroesophageal Reflux: Yes Hx Renal Disease: No Hx Cancer: Yes - Skin Hx of HIV: No Hx Hepatitis C: No Hx MRSA: No - Vaccination History Hx Tetanus, Diphtheria Vaccination: Yes Hx Influenza Vaccination: Yes Hx Pneumococcal Vaccination: Yes - Social History Hx Tobacco Use: Yes Hx Chewing Tobacco Use: No Hx Alcohol Use: No Hx Substance Use: No Hx Depression: No Hx Physical Abuse: No Hx Emotional Abuse: No Hx Suspected Abuse: No - Female History Patient : No Family Medical History - Family History Mother Family History: Unknown Hx Family Hypertension: Yes - multiple family members Hx Family Diabetes: Yes - multiple family members Physical Exam - Physical Exam Eye Exam: bilateral normal Ears, Nose, Throat: hearing grossly normal, normal ENT inspection, normal pharynx Neck: non-tender, full range of motion, supple, normal inspection Respiratory: chest non-tender, lungs clear, normal breath sounds, no respiratory distress Cardiovascular/Chest: normal peripheral pulses, regular rate, rhythm, no edema, no gallop, no murmur Peripheral Pulses: radial,right: 2+, radial,left: 2+ Gastrointestinal/Abdominal: normal bowel sounds, non tender, soft, no organomegaly Back Exam: normal inspection, no CVA tenderness, no vertebral tenderness Extremity: normal range of motion, non-tender Neurologic: sensory deficit - Patient with numbness to the left face, left arm and left leg. Patient has full range of motion. Patient with slurred and slowed speech in response to questions. Skin Exam: warm/dry, pallor Lymphatic: no adenopathy Progress - Progress Progress: Differential diagnosis: CVA, TIA, metabolic syndrome, hypoglycemia among others. 11/08/19 17:35 Patient symptoms are mildly improved with IV D10. CT scan is unremarkable. Chest x-ray does not show anything. Urine does show some bacteria but it is only 1+ and there 5-10 epithelial cells consistent with a dirty urine sample. Plan on admission to the hospital for further evaluation via MRI and carotid ultrasound. I have discussed this with the patient and her daughter and they voiced understanding and agreement with admission. I discussed this with Marilynn Sen NP, the hospitalist, and she has accepted the patient for admission. Mata Saxena M.D. #[id number] - Results/Orders Results/Orders: PROVIDED CLINICAL HISTORY/REASON FOR EXAM: ALTERED LOC TECHNIQUE: Volumetric CT data of the brain was obtained without intravenous contrast. This exam was performed according to our departmental dose-optimization program, which includes automated exposure control, adjustment of the mA and/or kV according to patient size and/or use of iterative reconstruction technique. COMPARISON: September 03, 2019 FINDINGS: Age-related volume loss and chronic small vessel ischemic change. Atherosclerotic plaque in the carotid siphons. Septum pellucidum and third ventricle are midline. No acute infarction is evident by CT. No acute hemorrhage is present. No mass or mass effect is present. The calvaria and soft tissues are unremarkable. The visualized paranasal sinuses are unremarkable. IMPRESSION: No acute intracranial abnormalities. Electronically signed by: Car Razo MD 11/08/2019 2:27 PM EXAM DESCRIPTION: Chest,1 View CLINICAL HISTORY: confusion COMPARISON: Chest x-ray September 03, 2019. CT abdomen pelvis August 29, 2019 which includes the lung bases. FINDINGS: Portable semiupright view of the thorax. Scarring and/or atelectasis left lung base. No acute airspace disease is demonstrated. Heart and mediastinum is within normal limits. IMPRESSION: No acute process. Electronically signed by: Krzysztof Lazaro MD 11/08/2019 2:40 PM 11/08/19 14:15 Telemetry .ONCE Sodium Chloride 0.9% (Flush) [Saline Flush Syringe] 10 ml IV PRN PRN EKG STAT 11/08/19 16:50 Urine Culture Stat 11/09/19 14:15 EKG STAT Laboratory Results - last 24 hr 11/08/19 11/08/19 11/08/19 14:28 14:28 14:28 WBC 8.5 RBC 2.71 L Hgb 9.4 L Hct 28.5 L MCV 105.1 H MCH 34.6 H MCHC 32.9 L RDW 18.2 H Plt Count 258 MPV 11.3 H Absolute Neuts (auto) 5.00 Absolute Lymphs (auto) 1.70 Absolute Monos (auto) 0.90 H Absolute Eos (auto) 0.70 H Absolute Basos (auto) 0.10 Neutrophils % 59.5 Lymphocytes % 19.8 L Monocytes % 10.8 H Eosinophils % 8.8 H Basophils % 1.1 Normal RBC Morphology Stain quality accept PT 10.5 INR 1.06 PTT (SP) 26.6 Sodium 132 L Potassium 4.4 Chloride 102 Carbon Dioxide 19 L Anion Gap 15.4 BUN 74 H Creatinine 3.20 H BUN/Creatinine Ratio 23.1 H POC Glucose Random Glucose 56 L Serum Osmolality 284.1 Calcium 9.6 Total Bilirubin 0.5 AST 23 ALT 14 Alkaline Phosphatase 100 Creatine Kinase 53 CK-MB (CK-2) 2.6 CK-MB (CK-2) % Not Reportable Troponin I < 0.02 Serum Total Protein 8.6 H Albumin 3.8 Globulin 4.8 H Albumin/Globulin Ratio 0.8 L Urine Color Urine Appearance Urine pH Ur Specific [place] Urine Protein Urine Glucose (UA) Urine Ketones Urine Blood Urine Nitrite Urine Bilirubin Urine Urobilinogen Ur Leukocyte Esterase Urine RBC Urine WBC Ur Epithelial Cells Urine Bacteria 11/08/19 11/08/19 11/08/19 14:28 16:25 16:50 WBC RBC Hgb Hct MCV MCH MCHC RDW Plt Count MPV Absolute Neuts (auto) Absolute Lymphs (auto) Absolute Monos (auto) Absolute Eos (auto) Absolute Basos (auto) Neutrophils % Lymphocytes % Monocytes % Eosinophils % Basophils % Normal RBC Morphology PT INR PTT (SP) Sodium Potassium Chloride Carbon Dioxide Anion Gap BUN Creatinine BUN/Creatinine Ratio POC Glucose 144 H 114 H Random Glucose Serum Osmolality Calcium Total Bilirubin AST ALT Alkaline Phosphatase Creatine Kinase CK-MB (CK-2) CK-MB (CK-2) % Troponin I Serum Total Protein Albumin Globulin Albumin/Globulin Ratio Urine Color Yellow Urine Appearance Sl cloudy Urine pH 5.5 Ur Specific [place] 1.010 Urine Protein Negative Urine Glucose (UA) Negative Urine Ketones Negative Urine Blood Negative Urine Nitrite Negative Urine Bilirubin Negative Urine Urobilinogen 0.2 Ur Leukocyte Esterase Moderate H Urine RBC 0-1 Urine WBC >50 H Ur Epithelial Cells 5-10 Urine Bacteria 1+ Vital Signs 11/08/19 11/08/19 11/08/19 14:11 15:00 16:00 Temperature 96.3 F L Pulse Rate [ 79 70 70 Right Brachial] Respiratory 16 20 16 Rate Blood Pressure 99/49 119/62 132/66 [Right Arm] O2 Sat by Pulse 85 L 98 99 Oximetry 11/08/19 17:19 Temperature 96.5 F L Pulse Rate [ 70 Right Brachial] Respiratory 16 Rate Blood Pressure 132/66 [Right Arm] O2 Sat by Pulse 96 Oximetry EKG performed 08 Nov 2019 at 1420 hrs.: Normal sinus rhythm at 76 bpm, normal axis deviation, low voltage QRS, borderline EKG. No comparison EKG available at this time. - EKG/XRAY/CT CT Ordered: Yes CT Interpretation Call Back: Yes Departure - Departure Clinical Impression: Stroke-like symptoms, Hypoglycemia Altered mental status Qualifiers: Altered mental status type: transient alteration of awareness Qualified Code(s): R40.4 - Transient alteration of awareness Time of Disposition: 16:35 Disposition: Admit Patient Condition: Fair Departure Forms: ED Discharge - Pt. Copy, Patient Portal Self Enrollment Referrals: Collin Catalan MD [Primary Care Provider] - 1-2 Weeks Home Medications: Ambulatory Orders Aspirin [Aspirin 81] 81 mg PO AM 10/18/12 Pantoprazole Sodium 40 mg PO 0630 10/18/12 Allopurinol [Zyloprim] 100 mg PO DAILY 01/17/16 Atorvastatin Calcium [Lipitor] 40 mg PO DAILY 01/17/16 BuPROPion SR [Wellbutrin SR] 150 mg PO DAILY 01/17/16 Furosemide Tab [Lasix Tab] 40 mg PO DAILY 01/17/16 Insulin Regular (Human) [Humulin R] 40 unit SUBCU BID 01/17/16 Isosorbide Mononitrate [Isosorbide Mononitrate ER] 30 mg PO DAILY 01/17/16 Metoprolol Succinate [Metoprolol Succinate ER] 50 mg PO DAILY 01/17/16 Insulin,Isop(Human(NPH) [Humulin N] 30 unit SUBCU BIDAC #1 pen 01/18/16 Ascorbic Acid [Vitamin C] 1,000 mg PO DAILY 07/22/19 Calcium Carbonate-Cholecalcife [Os-Endy Calcium + D3 500-200 mg-Unit] 1 tab PO DAILY 07/22/19 Cyanocobalamin [Vitamin B-12] 1,000 mcg IM MONTHLY 07/22/19 Gabapentin [Neurontin] 300 mg PO BID PRN 07/22/19 Hydrochlorothiazide 12.5 mg PO DAILY 07/22/19 [place]-3 Fatty Acids [[place] 3 1000 mg] 1 cap PO DAILY 07/22/19 Vit W/ Ferrous Fumara [] 1 tab PO DAILY 07/22/19 Probiotic Product [Digestive Advantage Probi] 2 chw PO DAILY 07/22/19 Tramadol HCl 50 mg PO Q8HRS PRN 07/22/19 hydrOXYzine HCl [Atarax] 25 mg PO DAILY PRN 07/22/19 Biotin 10,000 mcg SL 08/30/19 Vitamin B12 1 tablet SL DAILY 08/30/19 Azithromycin IV [Zithromax IV] 500 mg IVPB Q24H vial 09/04/19 Levalbuterol Nebs [Xopenex NEBS] 1.25 mg NEB RTQID vial 09/04/19 Meropenem [Merrem] 1 gm IVPB Q12H vial 09/04/19 Decision To Admit - Decistion To Admit Decision to Admit Reason: Admit from ER Decision to Admit Date: 11/08/19 Decision to Admit Time: 16:30
--- NOTE | 2019-11-08 17:01 | HP ---
SUPERVISING PHYSICIAN: Belle Juarez MD CHIEF COMPLAINT: Left sided weakness HISTORY OF PRESENT ILLNESS: This is a 74-year-old female patient who was last seen the morning prior to her admission. She was in her usual state of health at that time. Her daughter saw her again at 12:30 and she had apparently slipped to the floor. They called 911 and she was brought to the Emergency Room. The daughter said the patient was confused and not acting herself. Initially, her blood sugar was 58 and she was given some D50 with some improvement of her symptoms, but she did have some slurred speech and there were also some complaints of left facial, left arm and left leg numbness. In the Emergency Room, her initial vital signs showed temperature 96.3, heart rate 79, blood pressure 99/49, respiratory rate 16, O2 saturation 85%. She was given fluids as well as laboratory studies were drawn. Her sodium was 132, potassium 4.4, chloride 102, carbon dioxide 19, BUN 74, creatinine 3.2. Her baseline creatinine is 2.8. Glucose was 56 and did come to 139. Her troponin was less than 0.02. WBCs were 8,500 with hemoglobin 9.4, hematocrit 28.5. Her head CT showed no acute intracranial abnormalities. Her symptoms resolved for the most part except the patient continued to be very weak. I was called for hospital admission. PAST MEDICAL HISTORY: 1. Diabetes mellitus, type 2. 2. Coronary artery disease. 3. Hyperlipidemia. 4. Hypertension. 5. Chronic kidney disease. 6. Chronic low back pain. PAST SURGICAL HISTORY: 1. Laparoscopic cholecystectomy. 2. Heart catheterization with stent placement. 3. Low back surgery. OUTPATIENT MEDICATIONS: Per the EMR and awaiting verification. ALLERGIES: PENICILLIN. FAMILY HISTORY: Noncontributory. REVIEW OF SYSTEMS: GENERAL: Negative for fever, fatigue or weight changes. HEENT: Negative for sinus symptoms, ear pain, vision changes or sore throat. RESPIRATORY: Negative for wheezing, coughing or shortness of breath. CARDIAC: Negative for chest pain, palpitations or tachycardia. GASTROINTESTINAL: Negative for nausea, vomiting, diarrhea, constipation. GENITOURINARY: Negative for hematuria, dysuria or polyuria. NEUROLOGIC: As per history of present illness. PHYSICAL EXAMINATION: VITAL SIGNS: Temperature 97.5, heart rate 79, blood pressure 117/73, respiratory rate 20, O2 saturation 97% on room air. GENERAL: This is a 74-year-old female patient who is sitting up in her hospital bed. She is in no acute distress. HEENT: Normocephalic, atraumatic. Pupils are equal and reactive. Oropharynx is clear. NECK: Supple without mass. RESPIRATORY: Essentially clear to auscultation bilaterally. CHEST: There is equal rise and fall of the chest with inspiration and expiration. CARDIOVASCULAR: Regular rate and rhythm. GASTROINTESTINAL: Abdomen is soft, nondistended, nontender. Bowel sounds are positive. NEUROLOGIC: Awake and alert. She answers most questions appropriately. 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 SKIN: Warm and dry. LABORATORY: Labs and films are as per history of present illness. IMPRESSION: 1. Severe generalized weakness with initial left sided weakness including slurred speech. 2. Hypoglycemia requiring D50. 3. Diabetes mellitus, type 2, poorly controlled. 4. Chronic kidney disease with admitting creatinine of 3.21. Her baseline creatinine is 2.8. 5. History of coronary artery disease. 6. Hypertension. 7. Hyperlipidemia. PLAN: The patient has been placed in observation. She will have the TIA/CVA guidelines initiated. We will monitor including neuro checks overnight. I will order an MRI and carotid ultrasound tomorrow. Due to her extensive weakness, I will also have physical therapy evaluate her. She may need to go to a rehab facility after discharge to help with her activities of daily living. I am not sure if she is safe to go home at this point. We will restart her medications as soon as they are verified. I have also placed her on Lovenox for DVT prophylaxis. I put her on sliding scale insulin protocol. We will continue to monitor the patient closely and follow as needed. #[id number] [facility]
[2019-11-08] MEDS ORDERED: IV SET AND CAP CHANGE INJ INJ SCH (18:00)
[2019-11-08] MEDS ORDERED: DEXTROSE 50% 25 GM/50 ML SYG IV PRN (20:48)
[2019-11-08] MEDS ORDERED: GLUCAGON INJ 1 MG VIAL SUBCU PRN (20:48)
[2019-11-08] MEDS ORDERED: ENOXAPARIN SODIUM 40 MG/0.4 ML SYG SUBCU SCH (21:00)
[2019-11-08] MEDS ORDERED: NICOTINE PATCH 14 MG TD SCH (21:06)
[2019-11-08] MEDS ORDERED: LEVALBUTEROL NEBS 1.25 MG/3 ML VIAL NEB PRN (21:07)
[2019-11-08] MEDS ORDERED: hydrOXYzine HCl 25 MG TAB PO PRN (21:07)
[2019-11-08] MEDS ORDERED: NICOTINE PATCH 14 MG TD ONE (21:07)
[2019-11-08] MEDS ORDERED: CYCLOBENZAPRINE HCL 5 MG TAB PO PRN (21:07)
[2019-11-08] MEDS: INSULIN LISPRO 100 UNITS/ML PEN SUBCU SCH (21:12)
[2019-11-08] MEDS ORDERED: GABAPENTIN 300 MG CAP ONE (21:17)
[2019-11-08] MEDS: traMADol HCL 50 MG TAB PO PRN (21:53)
[2019-11-08] MEDS: GABAPENTIN 100 MG CAP PO SCH (21:53)
[2019-11-08] MEDS: SODIUM CHLORIDE 0.9% (FLUSH) 10 ML SYG IV SCH (21:55)
[2019-11-09] MEDS: PANTOPRAZOLE SODIUM IV 40 MG VIAL IV SCH (06:09)
--- NOTE | 2019-11-09 08:05 | MRI ---
EXAM DESCRIPTION: Brain w/oContrast CLINICAL HISTORY: 74 years Female, tia COMPARISON: CT head 11/08/2019, 09/03/2019. TECHNIQUE: Multisequence, multiplanar images of the brain obtained without intravenous contrast. FINDINGS: Brain Parenchyma, Ventricles, Meninges: No restricted diffusion. No acute intracranial hemorrhage. Mild generalized cerebral volume loss. Scattered T2 and FLAIR white matter hyperintensities in cerebral hemispheres likely relating to chronic seen small vessel disease. No abnormal extra-axial fluid collection. Vascular Structures: Normal flow voids for the major intracranial arteries and dural venous sinuses. Calvarium, paranasal sinuses, mastoids, and orbits: No abnormal calvarial or skull base marrow signal changes. Moderate inflammatory change in the posterior left ethmoid sinus. Bilateral lens replacement. IMPRESSION: 1. No acute intracranial abnormality. 2. Senescent changes. 3. Moderate left ethmoid sinus disease. Electronically signed by: George Mancuso MD 11/09/2019 8:04 AM CDT
[2019-11-09] MEDS: INSULIN LISPRO 100 UNITS/ML PEN SUBCU SCH ×4 (08:11→20:53)
[2019-11-09] MEDS ORDERED: ALLOPURINOL 300 MG TAB PO SCH (09:00)
[2019-11-09] MEDS ORDERED: ISOSORBIDE MONONITRATE (IMDUR) 30 MG TAB PO SCH (09:00)
[2019-11-09] MEDS: FUROSEMIDE 40 MG TAB PO SCH (09:56)
[2019-11-09] MEDS: POTASSIUM CHLORIDE 20 MEQ TAB PO SCH (09:56)
[2019-11-09] MEDS: GABAPENTIN 100 MG CAP PO SCH ×2 (09:56→20:35)
[2019-11-09] MEDS: hydroCHLOROthiazide 12.5 MG CAP PO SCH (09:57)
[2019-11-09] MEDS: ATORVASTATIN 20 MG TAB PO SCH (09:57)
[2019-11-09] MEDS: ISOSORBIDE MONONITRATE (IMDUR) 30 MG TAB PO SCH (09:57)
[2019-11-09] MEDS: BIFIDOBACTERIUM INFANTIS 4 MG CAP PO SCH (09:57)
[2019-11-09] MEDS: OXYBUTYNIN CL 5 MG TAB PO SCH (09:57)
[2019-11-09] MEDS: SODIUM CHLORIDE 0.9% (FLUSH) 10 ML SYG IV SCH ×2 (09:57→20:35)
[2019-11-09] MEDS: hydrOXYzine HCl 25 MG TAB PO SCH (09:57)
[2019-11-09] MEDS: METOPROLOL SUCCINATE XL 50 MG TAB PO SCH (09:58)
[2019-11-09] MEDS ORDERED: ALLOPURINOL 100 MG TAB PO SCH (10:30)
--- NOTE | 2019-11-09 13:42 | US ---
EXAM DESCRIPTION: Carotid Duplex: ULTRASOUND. CLINICAL HISTORY: 74 years Female TIA COMPARISON: MRI brain on this visit. TECHNIQUE: Transcutaneous scanning utilizing metcalf-scale and Doppler modes to evaluate the bilateral carotid systems and vertebral arteries. Percentage of diameter of stenosis or no stenosis recorded will be based upon NASCET criteria. FINDINGS: Peak systolic/end diastolic (CM-Sec) CCA Right 67/8 Left 64/13. ICA Right proximal 101/24, mid 75/16. Left proximal 72/21, mid 81/13. Vertebral Right 36/7 Left 45/9. ECA (PS Only) Right 83 left 73. ICA/CCA peak systolic ratio: Right 1.5 Left 1.3 ICA/CCA end diastolic ratio: Right 2.8 Left 1.1 Vertebral arteries: antegrade flow. Comments: Atherosclerotic calcifications in the bilateral common carotid bulbs and proximal ICAs. Spectral broadening in the mid right ICA. Spectral broadening in the mid and distal left ICA and minimal color turbulent flow. Left mid bulb: 53% area stenosis and 25% diameter stenosis. Proximal right ICA: 46% area stenosis and 51% diameter stenosis. Right mid CCA bulb: 20% area stenosis and 42% diameter stenosis. IMPRESSION: 1. Doppler evaluation of the bilateral carotid systems and vertebral arteries shows no hemodynamically significant stenoses. 25-50% stenosis in the left common carotid bulb. 2. Moderate amount of plaque in the carotid arteries bilaterally. Bilateral vertebral arteries showed antegrade-cephalad flow. Electronically signed by: Ethan Liu MD 11/09/2019 1:40 PM CDT
[2019-11-09] MEDS ORDERED: cefTRIAXone SODIUM 1 GM in SODIUM CHL 0.9% 50ML MIN-BAG+ 50 ML IVPB SCH (19:30)
--- NOTE | 2019-11-09 19:32 | PN ---
SUPERVISING PHYSICIAN: Yosi Juarez MD DATE: 11/09/19 SUBJECTIVE: The patient is lying in bed. She was evaluated by physical therapy today and she has a very difficult time walking. She is so weak, she no longer complains of any left-sided weakness or numbness. Her speech is fairly clear. We discussed her discharge planning and felt she nury benefit from going to a rehabilitation hospital so we are working on this, she has requested [facility] if possible. She denies chest pain, nausea or vomiting or diarrhea. OBJECTIVE: VITAL SIGNS: Temperature 97.9, heart rate 85, blood pressure 118/70, respirations 17, oxygen saturation 97% on 1 liter nasal cannula.. CHEST: Essentially clear to auscultation bilaterally. CARDIAC: Regular rate and rhythm. ABDOMEN: Soft, nondistended, non-tender, bowel sounds are positive. NEUROLOGICAL: She is awake, alert and oriented x3. Her bilateral upper extremity managing attorney are equal. She moves all extremities spontaneously. LABORATORY: WBC 7.7, hemoglobin 9.3, hematocrit 28. Glucose have run between 137 and 301. Sodium 133, potassium 4.5, chloride 102, carbon dioxide 20, BUN 7.4, creatinine 3.23, phosphorus is 5.1. Urinalysis shows a small amount of urine leukocyte esterase with 5 to 10 urine WBCs and 2+ urine bacteria. Triglyceride 378, LDL 65.7, HDL 23. Brain MRI shows: 1. No acute intracranial abnormality. 2. Senescent changes. 3. Moderate left ethmoid sinus disease. Carotid artery ultrasound shows: 1. Doppler evaluation of bilateral carotid system and vertebral arteries showed no hemodynamically significant stenosis, 25 to 50% stenosis in the left common carotid bulb. 2. Moderate amount of plaque in the carotid arteries bilaterally. Bilateral vertebral artery shows antegrade cephalad flow. All other labs and films have been reviewed via the EMR. IMPRESSION: 1. Severe generalized weakness with initial left sided weakness including slurred speech with a negative MRI. 2. Hypoglycemia requiring D50 on admission. 3. Urinary tract infection. 4. Diabetes mellitus, type 2, poorly controlled. 5. Acute on chronic kidney disease with admitting creatinine of 3.21. Her baseline creatinine is 2.8. 6. History of coronary artery disease. 7. Hypertension. 8. Hyperlipidemia. PLAN: We will continue present supportive care including physical therapy. A referral has been sent to the [facility], although there were concerns that she had used all of her rehab days. At this point, the patient is unsafe to go home as she is unable to walk. She may have to go to a senior care for physical therapy if we are unable to get her into a rehabilitation facility. I have also given her one liter of fluids with bicarb. I will start her on Rocephin for her urinary tract infection. I did order some labs per Dr. España' office and we will try to send those to his office tomorrow. Ordered lab in the morning and will continue to monitor closely and follow as needed. #[id number] [facility]
[2019-11-09] MEDS ORDERED: SODIUM CHL 0.9% 50ML MIN-BAG+ 50 ML IVPB ONE (19:37)
[2019-11-09] MEDS ORDERED: DEXTROSE 5% 1000ML 1,000 ML IVS ONE (19:37)
[2019-11-09] MEDS ORDERED: SODIUM BICARBONATE VIAL 50 MEQ/50 ML VIAL ONE (19:37)
[2019-11-09] MEDS ORDERED: cefTRIAXone SODIUM 1 GM VIAL ONE (19:37)
[2019-11-09] MEDS ORDERED: SODIUM BICARBONATE VIAL 75 MEQ in DEXTROSE 5% 1000ML 1,000 ML IVS ONE (20:00)
[2019-11-09] MEDS ORDERED: ENOXAPARIN SODIUM 30 MG/0.3 ML SYG SUBCU SCH (21:00)
[2019-11-10 01:58] VITALS: TEMP 98
[2019-11-10] MEDS: PANTOPRAZOLE SODIUM IV 40 MG VIAL IV SCH (06:39)
[2019-11-10] MEDS: INSULIN LISPRO 100 UNITS/ML PEN SUBCU SCH ×2 (07:37→11:28)
[2019-11-10] MEDS ORDERED: ALLOPURINOL 100 MG TAB PO SCH (09:00)
[2019-11-10] MEDS: OXYBUTYNIN CL 5 MG TAB PO SCH (09:39)
[2019-11-10] MEDS: hydrOXYzine HCl 25 MG TAB PO SCH (09:39)
[2019-11-10] MEDS: ISOSORBIDE MONONITRATE (IMDUR) 30 MG TAB PO SCH (09:39)
[2019-11-10] MEDS: GABAPENTIN 100 MG CAP PO SCH (09:39)
[2019-11-10] MEDS: FUROSEMIDE 40 MG TAB PO SCH (09:39)
[2019-11-10] MEDS: BIFIDOBACTERIUM INFANTIS 4 MG CAP PO SCH (09:39)
[2019-11-10] MEDS: METOPROLOL SUCCINATE XL 50 MG TAB PO SCH (09:39)
[2019-11-10] MEDS: hydroCHLOROthiazide 12.5 MG CAP PO SCH (09:40)
[2019-11-10] MEDS: ATORVASTATIN 20 MG TAB PO SCH (09:40)
[2019-11-10] MEDS: SODIUM CHLORIDE 0.9% (FLUSH) 10 ML SYG IV SCH (09:40)
[2019-11-10] MEDS: POTASSIUM CHLORIDE 20 MEQ TAB PO SCH (09:40)
[2019-11-10] MEDS: traMADol HCL 50 MG TAB PO PRN (09:44)
[2019-11-10 10:28] VITALS: O2SAT 96
[2019-11-10 10:47] VITALS: BP 132/79
--- NOTE | 2019-11-18 11:23 | DS ---
SUPERVISING PHYSICIAN: Belle Juarez MD DISCHARGE DIAGNOSIS: 1. Severe generalized weakness with initial left sided weakness including slurred speech with a negative MRI. 2. Hypoglycemia requiring D50 on admission. 3. Urinary tract infection. 4. Diabetes mellitus, type 2, poorly controlled. 5. Acute on chronic kidney disease with admitting creatinine of 3.21. Her baseline creatinine is 2.8. 6. History of coronary artery disease. 7. Hypertension. 8. Hyperlipidemia. HISTORY OF PRESENT ILLNESS: This is a 74-year-old female patient who was found down at home by her daughter earlier the morning of her admission. Her daughter saw her then about 12:30 that afternoon, she went to her house and the patient had apparently slipped to the floor. They called 911 and she was brought to the Emergency Room. The daughter said the patient was confused and not acting like herself. Initially, her blood sugar was 58 and she was given some D50 with some improvement of her symptoms, but she did have some slurred speech and there were also some complaints of left facial, left arm and left leg numbness. In the Emergency Room, her initial vital signs showed temperature 96.3, heart rate 79, blood pressure 99/49, respiratory rate 16, O2 saturation 85%. She was given fluids as well as placed on oxygen. Her sodium was 132, potassium 4.4, chloride 102, carbon dioxide 19, BUN 74, creatinine 3.2. Her baseline creatinine is 2.8. Glucose was 56 and did come to 139. Her troponin was less than 0.02. WBCs were 8,500 with hemoglobin 9.4, hematocrit 28.5. Her head CT showed no acute intracranial abnormalities. Her symptoms resolved for the most part except the patient continued to be very weak. The patient was admitted and placed in observation in the hospital. HOSPITAL COURSE: She was placed on the TIA/CVA guidelines. Her neuro checks were monitored. An MRI and carotid ultrasound were also ordered. Physical therapy did evaluate her and initially said she was too weak to go home and may need to go to a rehab facility at some point. Her home medications were restarted and she was placed on Lovenox as well as sliding insulin protocol. The following day, an MRI of the brain was done as well as carotid ultrasound. She was found to have a mild urinary tract infection and was treated with Rocephin. Initially, it was recommended she go to a rehab facility and she was considering going to [facility], but she did not have any Medicare days left. It was then recommended she go to one of the local nursing homes for physical therapy. She does live with her and she refused to go to the [facility]. She said she could go home. She did walk with her walker with no apparent problems the morning of discharge. The patient will be discharged home in stable condition. LABORATORY: WBCs remained stable at 8.5 and on discharge were 6.3. Hemoglobin and hematocrit were somewhat low, but stable at 8.9 and 26.9. Platelet count was 209. Her coagulation studies were within normal limits. Blood sugars ran between 114 and 340. Sodium was slightly low at 133 with potassium 4.3, chloride 102, BUN 69, creatinine 2.82 which is approximately her baseline. Hemoglobin A1c 7.8. Phosphorous 5.1 and came down to 4.4. Calcium 9.2, magnesium 1.8. Liver function tests were within normal limits. Urinalysis showed a small amount of urine leukocyte esterase with 5 to 10 urine WBCs and urine bacteria of 2+. MICROBIOLOGY: Urine culture was pending on discharge. RADIOLOGY: MRI of the brain showed 1) No intracranial abnormality. 2) Senescent changes. 3) Moderate left ethmoid sinus disease. Her carotid artery ultrasound showed 1) Doppler evaluation of the bilateral carotid system and vertebral arteries showed no hemodynamically significant stenosis, 25-50% stenosis in the left common carotid bulb. 2) Moderate amount of plaque in the carotid arteries bilaterally. Bilateral vertebral arteries show antegrade cephalad flow. DISCHARGE PLAN: The patient will be discharged home in stable condition. She will have home health. Laboratory studies were obtained for Dr. España and those results were faxed to his office. She is to resume her diabetic diet and increase her activity as tolerated as well as she will have physical therapy from home health. She is to followup with Dr. Catalan within one to two weeks. In addition to her home medications, she will have 8 days of cefdinir. Her urine culture is still pending. She is to return to the hospital or call Dr. Catalan' office for any problems or complications. DISCHARGE MEDICATIONS: 1. Aspirin. 2. Pantoprazole. 3. Furosemide. 4. Metoprolol succinate. 5. Lipitor. 6. Zyloprim. 7. Regular insulin. 8. Bupropion. 9. NPH insulin. 10. Cyanocobalamin. 11. Hydrochlorothiazide. 12. [place] 3 fatty acids 13. Hydroxyzine. 14. Probiotic. 15. Calcium carbonate. 16. Vitamin C. 17. vitamins. 18. Gabapentin. 19. Tramadol. 20. Biotin. 21. Oxybutynin. 22. Cyclobenzaprine. 23. Potassium chloride. 24. Isosorbide mononitrate. 25. Xopenex. 26. Cefdinir. #[id number] [facility]
== END 2019-11-10 11:54 | disposition home health service (06) ==
LOC: ER 13:59 → MS 17:00
PROVIDERS: ADMIT Nurse Practitioner Acute Care; ATTEND Nurse Practitioner Acute Care
DX: M62.81 Muscle weakness (generalized) (principal); R47.81 Slurred speech; E11.649 Type 2 diabetes mellitus with hypoglycemia without coma; N39.0 Urinary tract infection, site not specified; N17.9 Acute kidney failure, unspecified; I12.9 Hypertensive chronic kidney disease with stage 1 through stage 4 chronic kidney disease, or unspecified chronic kidney disease; E11.22 Type 2 diabetes mellitus with diabetic chronic kidney disease; N18.9 Chronic kidney disease, unspecified; I25.10 Atherosclerotic heart disease of native coronary artery without angina pectoris; E78.5 Hyperlipidemia, unspecified; R41.0 Disorientation, unspecified; G89.29 Other chronic pain; I65.23 Occlusion and stenosis of bilateral carotid arteries; J32.2 Chronic ethmoidal sinusitis; M54.5 Low back pain; K21.9 Gastro-esophageal reflux disease without esophagitis; Z79.4 Long term (current) use of insulin; Z79.891 Long term (current) use of opiate analgesic; Z79.82 Long term (current) use of aspirin; Z79.899 Other long term (current) drug therapy; Z88.0 Allergy status to penicillin; Z95.5 Presence of coronary angioplasty implant and graft; Z87.891 Personal history of nicotine dependence; Z85.828 Personal history of other malignant neoplasm of skin; Z90.49 Acquired absence of other specified parts of digestive tract
CPT/HCPCS: 96366 ×2; 96365; 96375; 96376; 96372 ×3; J0696; J7060; J1650 ×2; J1815 ×2; J7050; 82553; 80053 ×3; 87086 ×2; 82948 ×9; 83036; 80061; 36415 ×4; 87077; 87186; 80069; 81001; 85025 ×3; 82550; 83735 ×2; 85730; 84100; 85610; 82043; 84484; 36416 ×8; 71045; 70450; 93880; 94640; 94760 ×9; 97530 ×2; 97116 ×2; 97162; 99285; 70551; 93005

== ENCOUNTER → 2019-11-24 | Outpatient (CLI) | payer MEDICARE, OTHER | LOC: YCHH 08:42 | PROVIDERS: ATTEND Family Medicine | DX: I12.9 Hypertensive chronic kidney disease with stage 1 through stage 4 chronic kidney disease, or unspecified chronic kidney disease (principal); N18.4 Chronic kidney disease, stage 4 (severe); D63.1 Anemia in chronic kidney disease; E11.22 Type 2 diabetes mellitus with diabetic chronic kidney disease ==

== ENCOUNTER → 2019-12-21 | Outpatient (CLI) | payer MEDICARE, OTHER | LOC: YCHH 09:37 | PROVIDERS: ATTEND Family Medicine | DX: I12.9 Hypertensive chronic kidney disease with stage 1 through stage 4 chronic kidney disease, or unspecified chronic kidney disease (principal); N18.9 Chronic kidney disease, unspecified; D63.1 Anemia in chronic kidney disease ==

== ENCOUNTER → 2020-02-08 | Outpatient (CLI) | payer MEDICARE, OTHER | LOC: YCHH 15:22 | PROVIDERS: ATTEND Family Medicine | DX: D63.1 Anemia in chronic kidney disease (principal); I10 Essential (primary) hypertension; N18.4 Chronic kidney disease, stage 4 (severe); E11.39 Type 2 diabetes mellitus with other diabetic ophthalmic complication; E11.22 Type 2 diabetes mellitus with diabetic chronic kidney disease ==

== ENCOUNTER 2020-02-09 21:55 | Emergency (ER) | payer MEDICARE, OTHER ==
[2020-02-09] MEDS ORDERED: SODIUM CHLORIDE 0.9% (FLUSH) 10 ML SYG IV PRN (22:06)
[2020-02-09] MEDS ORDERED: SODIUM CHLORIDE 0.9% 1000ML 1,000 ML IVS ONE (22:06)
--- NOTE | 2020-02-09 22:15 | ED.PDOC ---
History of Present Illness - General Time Seen by Provider: 02/09/20 22:05 - History of Present Illness Initial Comments: 74 yo F with hx of DM, CKD, CAD and anemia comes in with acute AMS. Per EMS has been not responding appropriately since this morning. has had nausea and vomt ing x3. per had a fever 104 last night. Patient has been in and out of hospitals for the past year with sepsis secondary to pneumonia and pyelonephritis. Per patient she has not been feeling well for 11 days. brought her in because he couldn't understand her. Patient denies chest pain, shortness of breath, but does have a chronic cough. no diarrhea or bloody bm. Was suppose to have iron infusion today for anemia, but did not feel well enough to go. Does follow nephrology. is not on dialysis. Allergies/Adverse Reactions: Allergies Penicillins Allergy (Severe, Verified 11/08/19 20:10) Anaphylaxis Home Medications: Ambulatory Orders Aspirin [Aspirin 81] 81 mg PO AM 10/18/12 Pantoprazole Sodium 40 mg PO 0630 10/18/12 Allopurinol [Zyloprim] 100 mg PO DAILY 01/17/16 Atorvastatin Calcium [Lipitor] 40 mg PO DAILY 01/17/16 BuPROPion SR [Wellbutrin SR] 150 mg PO DAILY 01/17/16 Furosemide Tab [Lasix Tab] 20 mg PO DAILY 01/17/16 Insulin Regular (Human) [Humulin R] 40 unit SUBCU BID 01/17/16 Metoprolol Succinate [Metoprolol Succinate ER] 50 mg PO DAILY 01/17/16 Insulin,Isop(Human(NPH) [Humulin N] 30 unit SUBCU BIDAC #1 pen 01/18/16 Ascorbic Acid [Vitamin C] 1,000 mg PO NOON 07/22/19 Calcium Carbonate-Cholecalcife [Os-Endy Calcium + D3 500-200 mg-Unit] 1 tab PO DAILY 07/22/19 Cyanocobalamin [Vitamin B-12] 1,000 mcg IM MONTHLY 07/22/19 Gabapentin [Neurontin] 300 mg PO BID PRN 07/22/19 Hydrochlorothiazide 12.5 mg PO DAILY 07/22/19 Powderly-3 Fatty Acids [Powderly 3 1000 mg] 1 cap PO DAILY 07/22/19 Vit W/ Ferrous Fumara [] 1 tab PO DAILY 07/22/19 Probiotic Product [Digestive Advantage Probi] 2 chw PO DAILY 07/22/19 Tramadol HCl 50 mg PO BID 07/22/19 hydrOXYzine HCl [Atarax] 25 mg PO DAILY PRN 07/22/19 Biotin 10,000 mcg SL DAILY 08/30/19 Cyclobenzaprine HCl [Flexeril] 5 mg PO Q12H PRN 11/08/19 Hydroxyzine HCl 25 mg PO DAILY 11/08/19 Isosorbide Mononitrate [Isosorbide Mononitrate ER] 60 mg PO DAILY 11/08/19 Levalbuterol Nebs [Xopenex NEBS] 1.25 mg NEB RTQID PRN 11/08/19 Oxybutynin Chloride 5 mg PO DAILY 11/08/19 Potassium Chloride [Potassium Chloride ER] 20 meq PO DAILY 11/08/19 Cefdinir 300 mg PO BID #16 capsule 11/10/19 Review of Systems - Review of Systems Constitutional: States: fever, malaise EENTM: Denies: eye pain, blurred vision Respiratory: States: cough. Denies: orthopnea, short of breath, stridor, wheezing Cardiology: Denies: chest pain, edema, palpitations, syncope Gastrointestinal/Abdominal: States: nausea, vomiting. Denies: abdominal pain, constipation, diarrhea Genitourinary: States: dysuria, frequency. Denies: discharge, hematuria Musculoskeletal: Denies: back pain, joint swelling, muscle pain, muscle stiffness Skin: Denies: change in color, rash Neurological: Denies: headache, numbness, paresthesia, seizure, tingling, tremors, weakness Endocrine: Denies: increased thirst, increased urine, unexplained weight gain, unexplained weight loss Hematologic/Lymphatic: Denies: anemia, blood clots, easy bleeding Unable to Obtain Due To: clinical condition Past Medical History (General) - Patient Medical History Hx Seizures: No Hx Stroke: No Hx Dementia: No Hx Asthma: No Hx of COPD: No Hx Cardiac Disorders: Yes - CAD Hx Congestive Heart Failure: No Hx Pacemaker: No Hx Hypertension: Yes Hx Thyroid Disease: No Hx Diabetes: Yes Hx Gastroesophageal Reflux: Yes Hx Renal Disease: No Hx Cancer: Yes - Skin Hx of HIV: No Hx Hepatitis C: No Hx MRSA: No - Vaccination History Hx Tetanus, Diphtheria Vaccination: Yes Hx Influenza Vaccination: Yes Hx Pneumococcal Vaccination: Yes - Social History Hx Tobacco Use: Yes Hx Chewing Tobacco Use: No Hx Alcohol Use: No Hx Substance Use: No Hx Depression: No Hx Physical Abuse: No Hx Emotional Abuse: No Hx Suspected Abuse: No - Female History Patient : No Family Medical History - Family History Mother Family History: Unknown Hx Family Hypertension: Yes - multiple family members Hx Family Diabetes: Yes - multiple family members Physical Exam - Physical Exam General Appearance: Lethargic, Other - responsive, intital GCS11 Eye Exam: bilateral normal Ears, Nose, Throat: hearing grossly normal, normal ENT inspection Neck: non-tender, full range of motion, supple, normal inspection Respiratory: chest non-tender, lungs clear, normal breath sounds, no respiratory distress, no accessory muscle use Cardiovascular/Chest: normal peripheral pulses, regular rate, rhythm, no edema, no gallop, no JVD, no murmur, tachycardia, other - sinus tach Peripheral Pulses: radial,right: 2+, radial,left: 2+, dorsalis pedis,right: 2+, dorsalis pedis,left: 2+ Gastrointestinal/Abdominal: normal bowel sounds, non tender, soft, no organomegaly, no pulsatile mass Rectal Exam: deferred Back Exam: normal inspection, no CVA tenderness, no vertebral tenderness Extremity: non-tender, normal inspection, no pedal edema, no calf tenderness Neurologic: no motor/sensory deficits Skin Exam: normal color, warm/dry Progress - Results/Orders Results/Orders: Started sepsis workup. GCS 11. Spontaneous eye opening, confused speech, but answers appropriately at times. withdraws to pain. Rectal temperature 105. Ice packs applied to patient. 2 18 g IV placed. Will give 1 L NS bolus. EKG shows sinus tachycardia with HR 111, no evidence of stemi. When eubanks inserted, purulent material noted. After fluids, patient is now GCS 14. Answer slowly, confused at times. CXR show no evidence of pneumonia. mild pulmonary congestion. CT head shows no acute itracranial pathology. Troponin unremarkable. CBC shows mild leukopenia and anemia at baseline. Patient appears to be in [place], Cr baseline 3.8 currently 4.1. Cr up aprox 35% of baseline. hx of anaphylaxis with pcn, will start levaquin. pending covid test. Plan to transfer for urose[place], [place]. VSS. tachycardia improved 100. Will call for transfer. repeat temperature 100.5 F GCS now 15. Plan to transfer to [facility]. discussed with ER doc. Prior to transfer patients bp 88/49. L femoral central line placed. 02/09/20 22:06 IV Care:Saline Lock per Protoc QSHIFT Telemetry .ONCE Sodium Chloride 0.9% (Flush) [Saline Flush Syringe] 10 ml IV PRN PRN BLOOD CULTURE Stat URINE CULTURE W/COLONY COUNT Stat Arterial Blood Gas Stat EKG Stat Pulse Ox Stat Pulse Oximetry Assessment DAILY 02/09/20 22:14 URINE CULTURE W/COLONY COUNT Stat 02/10/20 00:15 LACTIC ACID Q2H Laboratory Results WBC 4.0 K/mm3 (4.8-10.8) L 02/09/20 22:10 RBC 2.32 M/mm3 (4.20-5.40) L 02/09/20 22:10 Hgb 9.0 gm/dL (12.0-16.0) L 02/09/20 22:10 Hct 26.8 % (36.0-47.0) L 02/09/20 22:10 MCV 115.7 fl (81.0-99.0) H 02/09/20 22:10 MCH 38.8 pg (27.0-31.0) H 02/09/20 22:10 MCHC 33.5 g/dL (33.0-37.0) 02/09/20 22:10 RDW 17.0 % (11.5-14.5) H 02/09/20 22:10 Plt Count 140 K/mm3 (130-400) 02/09/20 22:10 MPV 11.7 fl (7.40-10.4) H 02/09/20 22:10 Absolute Neuts (auto) 3.70 K/uL (1.8-6.8) 02/09/20 22:10 Absolute Lymphs (auto) 0.30 K/uL (1.0-3.4) L 02/09/20 22:10 Absolute Monos (auto) 0.00 K/uL (0.2-0.8) L 02/09/20 22:10 Absolute Eos (auto) 0.00 K/uL (0.0-0.4) 02/09/20 22:10 Absolute Basos (auto) 0.00 K/uL (0.0-0.1) 02/09/20 22:10 Neutrophils % 90.6 % (42.0-78.0) H 02/09/20 22:10 Lymphocytes % 7.0 % (20.0-50.0) L 02/09/20 22:10 Monocytes % 0.8 % (2.0-9.0) L 02/09/20 22:10 Eosinophils % 1.1 % (1.0-5.0) 02/09/20 22:10 Basophils % 0.5 % (0.0-2.0) 02/09/20 22:10 PT 10.6 SECONDS (9.0-10.9) 02/09/20 22:10 INR 1.07 (0.9-1.15) 02/09/20 22:10 PTT (SP) 28.9 SECONDS (21.8-31.6) 02/09/20 22:10 D-Dimer, Quantitative > 5000.0 ng/ml (131-400) H* 02/09/20 22:10 Sodium 133 mmol/L (135-145) L 02/09/20 22:10 Potassium 5.0 mmol/L (3.6-5.0) 02/09/20 22:10 Chloride 102 mmol/L (101-111) 02/09/20 22:10 Carbon Dioxide 18 mmol/L (21-31) L 02/09/20 22:10 Anion Gap 18.0 (12-18) 02/09/20 22:10 BUN 91 mg/dL (7-18) H 02/09/20 22:10 Creatinine 4.31 mg/dL (0.6-1.3) H 02/09/20 22:10 BUN/Creatinine Ratio 21.1 (10-20) H 02/09/20 22:10 Random Glucose 153 mg/dL (70-105) H 02/09/20 22:10 Serum Osmolality 297.4 mOsm/L (275-295) H 02/09/20 22:10 Lactic Acid 3.1 mmol/L (0.5-2.2) H* 02/09/20 22:10 Calcium 8.7 mg/dL (8.4-10.2) 02/09/20 22:10 Total Bilirubin 1.0 mg/dL (0.2-1.0) 02/09/20 22:10 AST 37 IU/L (10-42) 02/09/20 22:10 ALT 12 IU/L (10-60) 02/09/20 22:10 Alkaline Phosphatase 130 IU/L (42-121) H 02/09/20 22:10 Creatine Kinase 122 IU/L (26-140) 02/09/20 22:10 CK-MB (CK-2) 2.9 ng/mL (0.0-4.4) 02/09/20 22:10 CK-MB (CK-2) % Not Reportable 02/09/20 22:10 Troponin I 0.02 ng/mL (0.01-0.05) 02/09/20 22:10 Serum Total Protein 6.8 gm/dL (6.4-8.2) 02/09/20 22:10 Albumin 2.5 g/dl (3.2-5.5) L 02/09/20 22:10 Globulin 4.3 gm/dL (2.3-3.5) H 02/09/20 22:10 Albumin/Globulin Ratio 0.6 (1.1-1.9) L 02/09/20 22:10 Urine Color Yellow (Yellow) 02/09/20 22:14 Urine Appearance Cloudy (Clear) 02/09/20 22:14 Urine pH 5.5 (4.5-7.8) 02/09/20 22:14 Ur Specific [place] 1.015 (1.005-1.030) 02/09/20 22:14 Urine Protein 100 mg/dL H 02/09/20 22:14 Urine Glucose (UA) Negative mg/dL (Negative) 02/09/20 22:14 Urine Ketones Negative mg/dL (NEGATIVE) 02/09/20 22:14 Urine Blood Moderate (Negative) H 02/09/20 22:14 Urine Nitrite Negative 02/09/20 22:14 Urine Bilirubin Negative (NEGATIVE) 02/09/20 22:14 Urine Urobilinogen 0.2 mg/dL (0.2-1.0) 02/09/20 22:14 Ur Leukocyte Esterase Small (Negative) H 02/09/20 22:14 Urine RBC Obscured by wbc's /hpf H 02/09/20 22:14 Urine WBC Tntc /hpf H 02/09/20 22:14 Ur Epithelial Cells 0 /hpf 02/09/20 22:14 Urine Bacteria 3+ H 02/09/20 22:14 Procedures - Central Line Left Femoral vein Central Line Lumen: triple Central Line Procedure Prep: sterile drapes applied, sterile dressing applied Anesthesia: Lidocaine cc's of anesthesia: 3 Complications: none Central Line Post Position: sutured, good blood return Progress: Verbal Consent was obtained from and patient prior to the procedure. Indications, risks, and benefits were explained, they agreed to proceed with procedure. PROCEDURE SUMMARY: My hands were washed immediately prior to the procedure. I wore a surgical cap, mask with protective eyewear, sterile gown and sterile gloves throughout the procedure. The LEFT/ RIGHT inguinal region was prepped using chlorhexidine scrub and draped in sterile fashion using a full drape and sterile probe cover employed. a sterile ultrasound cover was placed. Anesthesia was achieved using 1% lidocaine. using real time ultrasound, the introducer needle was inserted medial to the femoral artery, inferior to the inguinal crease and into the femoral vein. Venous blood was withdrawn. The syringe was removed and a guidewire was advanced into the introducer needle. A small incision was made at the skin surface with a scalpel and the introducer needle was exchanged for a dilator over the guidewire. After appropriate dilation was obtained, the dilator was exchanged over the wire for a central venous catheter. The wire was removed and the catheter was sutured in place. A sterile sorbaview shield was placed ov er the catheter at the insertion site. The patient tolerated the procedure without any hemodynamic compromise. At time of procedure completion, all ports aspirated and flushed properly. Estimated blood loss is 3ml. Departure - Departure Clinical Impression: Elevated d-dimer, Acute on chronic renal insufficiency, Sepsis, Acute UTI Disposition: Transfer to Hospital Condition: Fair Referrals: Collin Catalan MD [Primary Care Provider] - 1-2 Days Home Medications: Ambulatory Orders Aspirin [Aspirin 81] 81 mg PO AM 10/18/12 Pantoprazole Sodium 40 mg PO 0630 10/18/12 Allopurinol [Zyloprim] 100 mg PO DAILY 01/17/16 Atorvastatin Calcium [Lipitor] 40 mg PO DAILY 01/17/16 BuPROPion SR [Wellbutrin SR] 150 mg PO DAILY 01/17/16 Furosemide Tab [Lasix Tab] 20 mg PO DAILY 01/17/16 Insulin Regular (Human) [Humulin R] 40 unit SUBCU BID 01/17/16 Metoprolol Succinate [Metoprolol Succinate ER] 50 mg PO DAILY 01/17/16 Insulin,Isop(Human(NPH) [Humulin N] 30 unit SUBCU BIDAC #1 pen 01/18/16 Ascorbic Acid [Vitamin C] 1,000 mg PO NOON 07/22/19 Calcium Carbonate-Cholecalcife [Os-Endy Calcium + D3 500-200 mg-Unit] 1 tab PO DAILY 07/22/19 Cyanocobalamin [Vitamin B-12] 1,000 mcg IM MONTHLY 07/22/19 Gabapentin [Neurontin] 300 mg PO BID PRN 07/22/19 Hydrochlorothiazide 12.5 mg PO DAILY 07/22/19 Powder[place]-3 Fatty Acids [[place]der[place] 3 1000 mg] 1 cap PO DAILY 07/22/19 Vit W/ Ferrous Fumara [] 1 tab PO DAILY 07/22/19 Probiotic Product [Digestive Advantage Probi] 2 chw PO DAILY 07/22/19 Tramadol HCl 50 mg PO BID 07/22/19 hydrOXYzine HCl [Atarax] 25 mg PO DAILY PRN 07/22/19 Biotin 10,000 mcg SL DAILY 08/30/19 Cyclobenzaprine HCl [Flexeril] 5 mg PO Q12H PRN 11/08/19 Hydroxyzine HCl 25 mg PO DAILY 11/08/19 Isosorbide Mononitrate [Isosorbide Mononitrate ER] 60 mg PO DAILY 11/08/19 Levalbuterol Nebs [Xopenex NEBS] 1.25 mg NEB RTQID PRN 11/08/19 Oxybutynin Chloride 5 mg PO DAILY 11/08/19 Potassium Chloride [Potassium Chloride ER] 20 meq PO DAILY 11/08/19 Cefdinir 300 mg PO BID #16 capsule 11/10/19 Transfer to Outside Facility - Transfer Information Decision to Transfer Date: 02/09/20 Decision to Transfer Time: 23:32 Reason for Transfer: specialized care not available Accepting Facility: [facility]
[2020-02-09] MEDS ORDERED: ONDANSETRON INJ 4 MG/2 ML VIAL IV ONE (22:18)
[2020-02-09] MEDS ORDERED: levoFLOXacin 750MG IV 750 MG in PREMIX BAG 1 BAG IVPB ONE (22:42)
--- NOTE | 2020-02-09 22:54 | RAD ---
EXAM: Chest,1 View CLINICAL INDICATION: Altered mental status COMPARISON: 11/08/2019 FINDINGS: A single view of the chest was obtained. Atherosclerotic calcifications are noted involving the aorta. The heart size is normal. The pulmonary vascularity is mildly congested. The lungs are clear. There is no consolidation, infiltrate, pleural effusion, or pneumothorax. IMPRESSION: Findings suggesting mild CHF. Electronically signed by: Vincent García MD 02/09/2020 10:53 PM CDT
--- NOTE | 2020-02-09 22:55 | CT ---
EXAM: Head CLINICAL INDICATION: Altered mental status COMPARISON: There is no previous study for comparison. TECHNIQUE: CT scan was done using contiguous axial 5 mm sections through the brain. This exam was performed according to our departmental dose-optimization program, which includes automated exposure control, adjustment of the mA and/or kV according to patient size and/or use of iterative reconstruction technique. FINDINGS: There is no midline shift, mass effect, or extraaxial fluid collection. There is no evidence of acute intracranial hemorrhage, mass lesion, or cerebral edema. The ventricles and cortical sulci are normal for the patient's age. Bone window images reveal no evidence of a skull fracture. IMPRESSION: No evidence of an acute intracranial process. Electronically signed by: Vincent García MD 02/09/2020 10:53 PM CDT
[2020-02-10 00:24] VITALS: TEMP 99.5
[2020-02-10] MEDS ORDERED: SODIUM CHLORIDE 0.9% 1000ML 1,000 ML IVS ONE (00:36)
[2020-02-10 01:12] VITALS: BP 86/45; O2SAT 95
[2020-02-10] MEDS ORDERED: NOREPINEPHRINE BITARTRATE 4 MG in DEXTROSE 5% 250ML 250 ML IVPB SCH (01:30)
== END 2020-02-10 01:36 | disposition short-term general hospital (02) ==
LOC: ER 21:55
DX: A41.9 Sepsis, unspecified organism (principal); N39.0 Urinary tract infection, site not specified; R79.89 Other specified abnormal findings of blood chemistry; N18.9 Chronic kidney disease, unspecified; E11.22 Type 2 diabetes mellitus with diabetic chronic kidney disease; I12.9 Hypertensive chronic kidney disease with stage 1 through stage 4 chronic kidney disease, or unspecified chronic kidney disease; R05 Cough; R00.0 Tachycardia, unspecified; I25.10 Atherosclerotic heart disease of native coronary artery without angina pectoris; D64.9 Anemia, unspecified; K21.9 Gastro-esophageal reflux disease without esophagitis; Z20.828 Contact with and (suspected) exposure to other viral communicable diseases; Z85.828 Personal history of other malignant neoplasm of skin; Z87.891 Personal history of nicotine dependence; Z79.82 Long term (current) use of aspirin; Z79.899 Other long term (current) drug therapy; Z79.4 Long term (current) use of insulin
CPT/HCPCS: 70450; 71045; 80053; 81001; 82550; 82553; 83605; 84484; 85025; 85379; 85610; 85730; 87040; 87086; 87088; 87186; 87635; 93005; A4216; J1956; J2405; J7030; J7060

== ENCOUNTER → 2020-04-05 | Outpatient (CLI) | payer MEDICARE, OTHER | LOC: YCHH 10:32 | PROVIDERS: ATTEND Family Medicine | DX: N39.0 Urinary tract infection, site not specified (principal) ==

== ENCOUNTER → 2020-04-25 | Outpatient (CLI) | payer MEDICARE, OTHER | LOC: YCHH 14:28 | PROVIDERS: ATTEND Family Medicine | DX: N39.0 Urinary tract infection, site not specified (principal) ==

== ENCOUNTER → 2020-05-15 | Outpatient (CLI) | payer MEDICARE, OTHER | LOC: YCHH 13:52 | PROVIDERS: ATTEND Family Medicine | DX: N39.0 Urinary tract infection, site not specified (principal) ==

== ENCOUNTER → 2020-07-19 | Outpatient (CLI) | payer MEDICARE, OTHER | LOC: YCHH 13:13 | PROVIDERS: ATTEND Family Medicine | DX: N39.0 Urinary tract infection, site not specified (principal) ==

== ENCOUNTER → 2020-08-06 | Outpatient (CLI) | payer MEDICARE, OTHER | LOC: YCHH 10:10 | PROVIDERS: ATTEND Family Medicine | DX: N39.0 Urinary tract infection, site not specified (principal) ==